=== PATIENT | male | born 1970 | race Caucasian/White ===

== ENCOUNTER 2018-11-15 17:37 | Inpatient (IN) | payer OTHER ==
[2018-11-15] MEDS ORDERED: SODIUM CHLORIDE 0.9% 1,000 ML IV ONE (18:37)
[2018-11-15] MEDS ORDERED: VANCOMYCIN IV PER PHARMACY 1 EACH MISC MISCELLANE PRN (18:37)
--- NOTE | 2018-11-15 18:37 | ED ---
Skin/Abscess/FB HPI - General Chief complaint: Skin/Abscess/Foreign Body Stated complaint: Toe pain Time Seen by Provider: 11/15/18 17:47 Source: patient, RN notes reviewed, old records reviewed Mode of arrival: ambulatory Limitations: no limitations - History of Present Illness Initial comments: This is a 48-year-old male the ER for evaluation patient resents today for evaluation regards to significant right great toe issue, right great toe infection with worsening symptoms worsening swelling worsening pain despite antibiotics. Patient is had outpatient imaging to try a roller coaster from osteomyelitis, so far very conclusive his first patient can relate. Patient denies fevers he is diabetic but does not take medications for his diabetes. B lood sugar he states usually runs within normal limits. Patient denies history of heart disease but does have high blood pressure and diabetes. MD complaint: other (Significant infection cellulitis and draining of right great toe) -: week(s) (4) Tetanus Up to Date: no Location: R foot Severity: severe Severity scale (1-10): 10 Quality: burning, aching Consistency: constant Improves with: none Worsens with: none Context: new medication, recent illness Associated symptoms: denies other symptoms Treatments Prior to Arrival: antibiotic - Related Data Home Medications Medication Instructions Recorded Confirmed Amoxic-Pot Clav 500-125 mg 1 tab PO TID 11/15/18 11/15/18 [Augmentin 500-125 mg] Levothyroxine Sodium [Synthroid] 100 mcg PO DAILY 11/15/18 11/15/18 Lisinopril-Hctz 10-12.5 mg 1 tab PO DAILY 11/15/18 11/15/18 [Zestoretic 10-12.5] Loratadine [Claritin] 10 mg PO DAILY PRN 11/15/18 11/15/18 Allergies Allergy/AdvReac Type Severity Reaction Status Date / Time No Known Allergies Allergy Verified 11/15/18 19:02 Review of Systems ROS Statement: Those systems with pertinent positive or pertinent negative responses have been documented in the HPI. ROS Other: All systems not noted in ROS Statement are negative. Past Medical History Past Medical History: Diabetes Mellitus, Hypertension, Thyroid Disorder History of Any Multi-Drug Resistant Organisms: None Reported Past Surgical History: Orthopedic Surgery Additional Past Surgical History / Comment(s): lt thumb Past Psychological History: No Psychological Hx Reported Smoking Status: Never smoker Past Alcohol Use History: Rare Past Drug Use History: Marijuana General Exam Limitations: no limitations General appearance: alert, in no apparent distress Head exam: Present: atraumatic, normocephalic, normal inspection Eye exam: Present: normal appearance, EOMI. Absent: scleral icterus, conjunctival injection, periorbital swelling ENT exam: Present: normal exam, mucous membranes moist Neck exam: Present: normal inspection. Absent: tenderness, meningismus, lymphadenopathy Respiratory exam: Present: normal lung sounds bilaterally. Absent: respiratory distress, wheezes, rales, rhonchi, stridor Cardiovascular Exam: Present: regular rate, normal rhythm, normal heart sounds. Absent: systolic murmur, diastolic murmur, rubs, gallop, clicks GI/Abdominal exam: Present: soft, normal bowel sounds. Absent: distended, tenderness, guarding, rebound, rigid Extremities exam: Present: normal inspection, full ROM, normal capillary refill, other (Right great toe does appear to have significant anal toe with surrounding infection and erythema pain with good line of demarcation proximally,. Drainage). Absent: tenderness, pedal edema, joint swelling, calf tenderness Back exam: Present: normal inspection Neurological exam: Present: alert, oriented X3, CN II-XII intact Psychiatric exam: Present: normal affect, normal mood Skin exam: Present: warm, dry, intact, normal color. Absent: rash Course Vital Signs 11/15/18 17:39 Temperature 98.2 F Pulse Rate 81 Respiratory 20 Rate Blood Pressure 150/94 O2 Sat by Pulse 98 Oximetry - Reevaluation(s) Reevaluation #1: 11/15/18 18:37 Medical records reviewed - Consultations Consultation #1: Spoke with Dr. Roberts is agreeable for admission Medical Decision Making - Medical Decision Making 48 male will be admitted for significant infection of right great toe likely ingrown toenail including this significant cellulitis with purulent drainage - Lab Data Result diagrams: 11/15/18 18:54 11/15/18 18:54 - EKG Data -: EKG Interpreted by Me (EKG shows sinus bradycardia rate of 58, MD 136, QRS 06, QTc 431) - Radiology Data Radiology results: report reviewed (X-ray right foot appears negative for acute disease), image reviewed Disposition Clinical Impression: Cellulitis of right toe, Ingrown toenail, Failure of outpatient treatment Disposition: ADMITTED IP TO THIS HOSP Condition: Fair Is patient prescribed a controlled substance at d/c from ED?: No
[2018-11-15] MEDS ORDERED: SODIUM CHLORIDE 0.9% 500 ML 500 ML IV STA (18:38)
[2018-11-15] MEDS ORDERED: VANCOMYCIN 2,250 MG in SODIUM CHLORIDE 0.9% 500 ML 500 ML IVPB STA (18:41)
[2018-11-15 19:13] LABS: Basophils % (A) 1 %; Eosinophils # (A) 0.2 k/uL (0-0.7); Eosinophils % (A) 3 %; HCT 44.4 % (39.0-53.0); Lymphocytes # (A) 1.6 k/uL (1.0-4.8); Lymphocytes % (A) 20 %; MCH 30.6 pg (25.0-35.0); MCHC 33.7 g/dL (31.0-37.0); MCV 90.8 fL (80.0-100.0); Mean Platelet Volume 8.4; Monocytes # (A) 0.4 k/uL (0-1.0); Monocytes % (A) 5 %; Neutrophils # (A) 5.6 k/uL (1.3-7.7); Neutrophils % (A) 69 %; Platelet Count 190 k/uL (150-450); RBC 4.89 m/uL (4.30-5.90); RDW 14.1 % (11.5-15.5)
[2018-11-15 19:18] LABS: ALT 18 U/L (21-72); AST 21 U/L (17-59); African American GFR (CKD) >90 (>60 ml/min/1.73 sqM); Albumin 4.3 g/dL (3.5-5.0); Alkaline Phosphatase 79 U/L (38-126); Anion Gap 10 mmol/L; Blood Urea Nitrogen 9 mg/dL (9-20); Calcium 9.8 mg/dL (8.4-10.2); Carbon Dioxide 30 mmol/L (22-30); Chloride 100 mmol/L (98-107); Glucose 122 mg/dL (74-99); Phosphorus 4.1 mg/dL (2.5-4.5); Potassium 3.9 mmol/L (3.5-5.1); Sodium 140 mmol/L (137-145); Total Bilirubin 0.4 mg/dL (0.2-1.3); Total Protein 7.7 g/dL (6.3-8.2)
[2018-11-15 19:23] LABS: INR 0.9 (<1.2); Partial Thromboplastin Time 25.2 sec (22.0-30.0)
--- NOTE | 2018-11-15 19:40 | XR ---
EXAMINATION TYPE: XR foot complete RT DATE OF EXAM: 11/15/2018 COMPARISON: NONE HISTORY: Toe infection TECHNIQUE: 3 views FINDINGS: There is soft tissue swelling at the end of the big toe. I see no fracture nor dislocation. I see no focal bone destruction. There is plantar calcaneal spurring. There is spurring at the first MP joint with joint space narrowing. IMPRESSION: Soft tissue swelling. No sign of osteomyelitis.
[2018-11-15] MEDS ORDERED: ALPRAZolam 0.25 MG TAB PO PRN (21:53)
[2018-11-15] MEDS ORDERED: TEMAZEPAM 15 MG CAP PO PRN (21:53)
--- NOTE | 2018-11-15 22:27 | HP ---
HISTORY AND PHYSICAL DATE OF SERVICE: 11/15/2018. CHIEF COMPLAINT: Right great toe infection and abscess. HISTORY OF PRESENT ILLNESS: This 48-year-old gentleman with a past medical history of multiple medical problems, including diabetes mellitus, hypertension, hypothyroidism, history of DJD, history of left trigger thumb as well as ingrowing toenail of the right big toe, being followed by Dr. Magdiel Osborne in the outpatient setting, was noted to have infection of the right big toe for the last 3 to 4 weeks. The patient was on antibiotic. The patient because of lack of improvement patient came to [facility] and was admitted for further evaluation and treatment. There is no history of any fever, rigor or chills. No history of headache, loss of consciousness, seizures. PAST MEDICAL HISTORY: 1. History of diabetes. 2. Hypertension. 3. Hypothyroidism. 4. History of DJD. 5. Trigger thumb. HOME MEDICATIONS: 1. Claritin 10 mg daily p.r.n. 2. Zestoretic 10/12.5 mg p.o. daily. 3. Synthroid 100 mcg p.o. daily. 4. Augmentin 500 mg p.o. t.i.d. ALLERGIES: NONE. FAMILY HISTORY: No history of any heart disease or strokes. SOCIAL HISTORY: No history of smoking. THC. REVIEW OF SYSTEMS: ENT: No diminished hearing. No diminished vision. CARDIOVASCULAR SYSTEM: No angina, palpitations. RESPIRATORY SYSTEM: As mentioned earlier. GI: No nausea, vomiting. : No dysuria or retention. NERVOUS SYSTEM: No numbness, weakness. ALLERGY/IMMUNOLOGY: No asthma, hayfever. MUSCULOSKELETAL: As mentioned earlier. HEMATOLOGY/ONCOLOGY: No history of anemia. ENDOCRINE: No history of diabetes, hypothyroidism. CONSTITUTIONAL: As mentioned earlier. DERMATOLOGY: Negative. RHEUMATOLOGY: Negative. PSYCHIATRY: As mentioned earlier. PHYSICAL EXAMINATION: Patient is alert, oriented x3. Pulse is 55, blood pressure 160/73, respiration 18, temperature 98.2, pulse ox 98% on room air. HEENT: Conjunctivae normal. NECK: No jugular venous distention. CARDIOVASCULAR SYSTEM: S1, S2 muffled. RESPIRATORY SYSTEM: Breath sounds diminished at the bases. No rhonchi. No crackles. ABDOMEN: Soft, non-tender. No mass palpable. LEGS: No edema. No swelling. NERVOUS SYSTEM: Higher functions as mentioned earlier. Moves all 4 limbs. No focal motor or sensory deficit. LYMPHATICS: No lymph node palpable in neck, axillae or groin. SKIN: No ulcer, rash, bleeding. JOINTS: No active deforming arthropathy. EXAMINATION OF THE RIGHT BIG TOE: Significant swelling and pain and possible abscess formation with some bleeding and tenderness also present. Pulses are felt normally. LABS: CBC within normal limits. Sodium 140, potassium 3.9. Glucose 122. ASSESSMENT: 1. Right big toe abscess and possible cellulitis related to diabetic ulcer with failure of outpatient treatment. 2. Diabetes mellitus, type 2. 3. Hypertension. 4. Hypothyroidism. 5. Degenerative joint disease. 6. History of ingrown toenail in the right big toe. 7. Obesity with body mass index of 40. 8. History of tetrahydrocannabinol. RECOMMENDATIONS AND DISCUSSION: In this 48-year-old gentleman who presented with multiple medical issues, we will monitor the patient closely, continue the current medication, continue with symptomatic treatment. Broad-spectrum IV antibiotics. Follow the cultures. I would also recommend a bone scan to rule out the possibility of osteomyelitis. Infectious disease and vascular surgery consultations. Prognosis guarded because of multiple complex medical issues. Further recommendations to follow. A copy of this dictation is being forwarded to Dr. Magdiel Osborne, who is the primary physician. LINK / ANDIN: [id number] / MTDPorsha
[2018-11-15] MEDS: PIPERACILLIN-TAZOBACTAM 3.375 GM in SODIUM CHLORIDE 0.9% 100 ML IVPB SCH (23:47)
[2018-11-16] MEDS ORDERED: IBUPROFEN 400 MG TAB PO PRN (00:57)
[2018-11-16] MEDS: VANCOMYCIN 2,000 MG in SODIUM CHLORIDE 0.9% 500 ML 500 ML IVPB SCH ×3 (04:46→22:00)
[2018-11-16] MEDS: PIPERACILLIN-TAZOBACTAM 3.375 GM in SODIUM CHLORIDE 0.9% 100 ML IVPB SCH ×2 (06:05→15:22)
[2018-11-16] MEDS: LEVOTHYROXINE 100 MCG TAB PO SCH (06:15)
[2018-11-16 08:01] LABS: Glucose,Whole Blood 96 mg/dL (75-99)
[2018-11-16] MEDS: INSULIN ASPART (NovoLOG) 100 UNIT/ML VIAL SQ SCH ×4 (08:14→22:01)
[2018-11-16] MEDS: LISINOPRIL-HCTZ 10-12.5 MG 1 EACH TAB PO SCH (08:51)
[2018-11-16] MEDS: HEPARIN SODIUM,PORCINE 5,000 UNIT/ML 1 ML VIAL SQ SCH ×2 (08:51→22:00)
[2018-11-16 09:43] LABS: Basophils % (A) 1 %; Eosinophils # (A) 0.3 k/uL (0-0.7); Eosinophils % (A) 6 %; HCT 42.2 % (39.0-53.0); HGB 13.7 gm/dL (13.0-17.5); Lymphocytes # (A) 1.6 k/uL (1.0-4.8); Lymphocytes % (A) 29 %; MCH 30.4 pg (25.0-35.0); MCHC 32.5 g/dL (31.0-37.0); MCV 93.6 fL (80.0-100.0); Mean Platelet Volume 8.3; Monocytes # (A) 0.4 k/uL (0-1.0); Monocytes % (A) 7 %; Neutrophils % (A) 55 %; Platelet Count 154 k/uL (150-450); RBC 4.51 m/uL (4.30-5.90); RDW 14.2 % (11.5-15.5); WBC 5.5 k/uL (3.8-10.6)
[2018-11-16 09:54] LABS: African American GFR (CKD) >90 (>60 ml/min/1.73 sqM); Anion Gap 7 mmol/L; Blood Urea Nitrogen 8 mg/dL (9-20); Carbon Dioxide 30 mmol/L (22-30); Chloride 103 mmol/L (98-107); Glucose 134 mg/dL (74-99); Potassium 4.1 mmol/L (3.5-5.1); Sodium 140 mmol/L (137-145)
--- NOTE | 2018-11-16 10:00 | P.CON ---
Consult Note - . Consult date: 11/16/18 Assessment/Plan:: This is a pleasant 48-year-old gentleman who is being seen by wound care for a open ulceration to the right great toe. Patient states that the ulceration has been going on for probably 3-4 weeks that he has been on antibiotics. The patient noticed a week prior to the antibiotic redness to that toe. Patient states that the area constantly has edema and had noticed some skin breakdown prior to the redness. Ulceration to right great toe proximal to nailbed extending to distal portion of toe. Erythema and edema and an odor noted to the site. Patient has significant past history for diabetes mellitus, hypertension, hyperthyroidism. He is followed in the outpatient setting by Dr. Osborne. Review of systems: Integumentary: Reports a wound to right great toe, denies changes in skin, denies rashes, denies pruritus Physical exam: Integument: See HPI Assessment/plan: 1. Diabetic foot ulcer with fatty layer exposure. Absorptive silver, saline moistened gauze, dry gauze, rolled gauze to secure. Change dressing Wednesday. Patient to be seen by Dr. Smith for further recommendations on management of ulceration related to possible surgical intervention. Offloading utilizes walker and offloading boot as needed. Consult PT to assist with offloading and utilization of walker. Elevate leg as tolerated. Consult diabetes education. Consult nutrition for ulceration. Discussed with patient eulalia scottmariam his wound care and an outpatient setting patient was agreeable. 2. Cellulitis rule out osteomyelitis. Bone scan ordered awaiting results. Wound cultures pending. Thank you for the consultation any questions please contact the wound care center. DNP note has been reviewed and discussed with Dr. Duran and the impression and plan of care has been directed as dictated.
[2018-11-16 11:31] LABS: Appearance,Urine Clear (Clear); Bilirubin,Urine Negative (Negative); Blood,Urine Negative (Negative); Color,Urine Yellow; Glucose,Urine (UA) Negative (Negative); Ketones,Urine Negative (Negative); Leukocyte Esterase,Urine Negative (Negative); Nitrite,Urine Negative (Negative); Protein,Urine Negative (Negative); Specific Gravity,Urine 1.014 (1.001-1.035); Urobilinogen,Urine <2.0 mg/dL (<2.0)
[2018-11-16 12:06] LABS: Glucose,Whole Blood 98 mg/dL (75-99)
--- NOTE | 2018-11-16 13:38 | NM ---
EXAMINATION TYPE: NM bone 3 phase DATE OF EXAM: 11/16/2018 COMPARISON: Plain film 11/15/2018 HISTORY: Myelitis great toe Triple phase bone scintigraphy was performed following the injection of 25.8 mCi Tc 99m MDP. Immedia te images and 5.5 hours post injection images acquired. FINDINGS: Abnormal radio pharmaceutical uptake is noted on blood flow, blood pool and delayed imaging involving the first digit of the right foot. Uptake within the midfoot and ankle bilaterally is symmetric. IMPRESSION: Compatible with osteomyelitis first digit right foot
[2018-11-16 15:48] VITALS: BMI 40.0
[2018-11-16 17:06] LABS: Glucose,Whole Blood 97 mg/dL (75-99)
--- NOTE | 2018-11-16 18:10 | PN ---
PROGRESS NOTE DATE OF SERVICE: 11/16/2018. This 48-year-old gentleman who was admitted with right great toe abscess also had a diabetic ulcer. No chest pain. No palpitations. The bone scan is showing possible osteomyelitis of the right first digit of the foot. Infectious disease and vascular consultations are in place. Surgical evaluation in place. No chest pain. No palpitation. On exam, alert and oriented x3. Pulse 55, blood pressure 112/71, respiration 18, temperature 97.6, pulse ox 98% on room air. HEENT: Conjunctivae normal. NECK: No jugular venous distention. CARDIOVASCULAR SYSTEM: S1, S2 muffled. RESPIRATORY SYSTEM: Breath sounds diminished at the bases. No rhonchi. No crackles. ABDOMEN: Soft, non-tender. LEGS: No edema. No swelling. NERVOUS SYSTEM: No focal deficit. Right foot big toe has significant cellulitis and surrounding cellulitis present. Labs noted. ASSESSMENT: 1. Right big toe abscess, possible cellulitis with a diabetic ulcer with failure of outpatient treatment. 2. Diabetes mellitus, type 2. 3. Hypertension. 4. Hypothyroidism. 5. Degenerative joint disease. 6. History of ingrown toenail on the right big toe. 7. Obesity with body mass index of 40. 8. History of tetrahydrocannabinol. RECOMMENDATIONS AND DISCUSSION: At this time I recommend to continue current medications, continue with the monitoring, symptomatic treatment. Monitor the patient closely. Continue IV antibiotics. Follow the cultures. Guarded prognosis because of multiple complex medical issues. Further recommendations to follow. MMODL / IJN: [id number] /
[2018-11-16 20:56] LABS: Glucose,Whole Blood 111 mg/dL (75-99)
--- NOTE | 2018-11-16 23:48 | P.CONS ---
History of Present Illness - Reason for Consult Consult date: 11/16/18 Right big toe infection Requesting physician: Stephani Roberts - Chief Complaint Right big toe nonhealing wound pain swelling redness times few weeks - History of Present Illness Patient is a 48-year-old male with a past medical history significant for diabetes mellitus presenting to the ER for a nonhealing wound on the plantar aspect of his right big toe patient is not exactly sure how it started however has been there for more than 3 weeks now and has been treated with more than 3 weeks course of oral Augmentin without any improvement patient had did have a d iffuse swelling redness of the right big toe which is almost was the site of his left big toe with evidence of ingrowing toenail patient has been complaining of pain to the big toe with more of a dull aching to sharp intensity about 7-8 out of 10 and no radiation the patient did have minimal drainage from it with some foul-smelling with the symptoms and the patient was evaluated by the physician o n presentation to the hospital patient has been afebrile but his white count has been normal x-rays of the right big toe currently with no evidence of any osteomyelitis, bone scan has been ordered which is currently in progress patient has been started on vancomycin and Zosyn infectious disease was consulted for further recommendation regarding antibiotic therapy Review of Systems CONSTITUTIONAL: Positive for weakness. Denies high-grade Fever EYES: No complaint. ENT:No complaint. RESPIRATORY: No complaint. CARDIOVASCULAR: No complaint. GENITOURINARY: No complaint. GASTROINTESTINAL: No complaint. MUSCULOSKELETAL: As per history of present illness INTEGUMENTARY: As per history of present illness PSYCHOLOGICAL: No complaint. ENDOCRINE: No complaint. NEUROLOGIC: No complaint. Past Medical History Past Medical History: Diabetes Mellitus, Hypertension, Thyroid Disorder History of Any Multi-Drug Resistant Organisms: None Reported Past Surgical History: Orthopedic Surgery Additional Past Surgical History / Comment(s): lt thumb trigger thumb Past Anesthesia/Blood Transfusion Reactions: No Reported Reaction Additional Past Anesthesia/Blood Transfusion Reaction / Comm: Uncle on mother's side had a reaction to anesthesia during ortho surgery and prior to surgery, had heart problems Past Psychological History: No Psychological Hx Reported Smoking Status: Never smoker Past Alcohol Use History: Rare Past Drug Use History: Marijuana Medications and Allergies Home Medications Medication Instructions Recorded Confirmed Type Amoxic-Pot Clav 500-125 mg 1 tab PO TID 11/15/18 11/15/18 History [Augmentin 500-125 mg] Levothyroxine Sodium [Synthroid] 100 mcg PO DAILY 11/15/18 11/15/18 History Lisinopril-Hctz 10-12.5 mg 1 tab PO DAILY 11/15/18 11/15/18 History [Zestoretic 10-12.5] Loratadine [Claritin] 10 mg PO DAILY PRN 11/15/18 11/15/18 History Allergies Allergy/AdvReac Type Severity Reaction Status Date / Time No Known Allergies Allergy Verified 11/15/18 19:02 Physical Exam Vitals: Vital Signs Temp Pulse Pulse Resp BP BP Pulse Ox 11/16/18 08:50 97.6 F 55 L 18 112/71 98 11/16/18 04:45 98 F 52 L 20 99/58 96 11/16/18 00:00 20 11/15/18 20:25 97.9 F 62 20 149/85 100 11/15/18 19:56 55 L 18 165/73 98 11/15/18 17:39 98.2 F 81 20 150/94 98 Intake and Output 11/15/18 11/16/18 11/16/18 22:59 06:59 14:59 Intake Total 200 100 Balance 200 100 Intake: Oral 200 100 Other: Voiding Method Toilet # Voids 1 1 # Bowel Movements 0 Weight 130.181 kg GENERAL DESCRIPTION: Middle-aged male lying in bed, no distress. No tachypnea or accessory muscle of respiration use. HEENT: Shows Pallor , no scleral icterus. Oral mucous membrane is dry. No pharyngeal erythema or thrush NECK: Trachea central, no thyromegaly. LUNGS: Unlabored breathing. Clear to auscultation anteriorly. No wheeze or crackle. HEART: S1, S2, regular rate and rhythm. No loud murmur ABDOMEN: Soft, no tenderness , guarding or rigidity, no organomegaly EXTREMITIES: Right big toe did have a plantar wound with no significant slough tissue right big toe was swollen and red with evidence of ingrowing toenail with some dry blood around the edges of the nail minimal foul-smelling SKIN: No rash, no masses palpable. NEUROLOGICAL: The patient is awake, alert, oriented x3, mood and affect normal. Results CBC & Chem 7: 11/16/18 09:00 11/16/18 09:00 Labs: Abnormal Lab Results - Last 24 Hours (Table) 11/15/18 11/16/18 Range/Units 18:54 09:00 BUN 8 L (9-20) mg/dL Creatinine 0.65 L 0.65 L (0.66-1.25) mg/dL Glucose 122 H 134 H (74-99) mg/dL ALT 18 L (21-72) U/L Microbiology - Last 24 Hours (Table) 11/16/18 05:00 Wound Culture - Preliminary Toe - Right First Assessment and Plan Assessment: 1-patient with right diabetic foot infection in this patient currently to have a nonhealing wound on the plantar aspect of the right big toe with secondary cellulitis that has failed outpatient oral Augmentin therapy with concern for underlying osteomyelitis will need to cover for both gram-positive as well as gram-negative bacteria in this patient who did have underlying diabetes mellitus Plan: 1-Vancomycin pharmacy to dose target trough of 15 while watching his kidney function and Vanco trough closely 2-discontinue Zosyn and add cefepime 2 g daily to cover for gram negatives 3-await vascular surgery evaluation for either debridement of the wound and deep culture or partial amputation of the right big toe 4-local wound care with Aquacel silver dressing We will follow on clinical condition and cultures to further adjust medication if needed Thank you for this consultation will follow this patient with you Time with Patient: Greater than 30
[2018-11-17] MEDS: PIPERACILLIN-TAZOBACTAM 3.375 GM in SODIUM CHLORIDE 0.9% 100 ML IVPB SCH (00:10)
[2018-11-17] MEDS: VANCOMYCIN 2,000 MG in SODIUM CHLORIDE 0.9% 500 ML 500 ML IVPB SCH ×2 (05:01→17:20)
[2018-11-17] MEDS: LEVOTHYROXINE 100 MCG TAB PO SCH (06:09)
[2018-11-17 07:19] LABS: Glucose,Whole Blood 96 mg/dL (75-99)
[2018-11-17] MEDS: INSULIN ASPART (NovoLOG) 100 UNIT/ML VIAL SQ SCH ×4 (07:26→20:47)
[2018-11-17] MEDS: CEFEPIME 2 GM in SODIUM CHLORIDE 0.9% 100 ML IVPB SCH ×2 (08:17→20:57)
[2018-11-17] MEDS: HEPARIN SODIUM,PORCINE 5,000 UNIT/ML 1 ML VIAL SQ SCH ×2 (08:17→20:57)
[2018-11-17] MEDS: LISINOPRIL-HCTZ 10-12.5 MG 1 EACH TAB PO SCH (08:17)
[2018-11-17 09:00] LABS: Basophils % (A) 1 %; Eosinophils # (A) 0.4 k/uL (0-0.7); Eosinophils % (A) 6 %; HCT 41.4 % (39.0-53.0); HGB 12.8 gm/dL (13.0-17.5); Lymphocytes # (A) 1.5 k/uL (1.0-4.8); Lymphocytes % (A) 24 %; MCH 29.2 pg (25.0-35.0); MCV 94.1 fL (80.0-100.0); Monocytes # (A) 0.3 k/uL (0-1.0); Monocytes % (A) 5 %; Neutrophils % (A) 63 %; Platelet Count 145 k/uL (150-450); RDW 14.3 % (11.5-15.5); WBC 6.3 k/uL (3.8-10.6)
[2018-11-17 09:16] LABS: African American GFR (CKD) >90 (>60 ml/min/1.73 sqM); Anion Gap 6 mmol/L; Blood Urea Nitrogen 8 mg/dL (9-20); C Reactive Protein 6.7 mg/L (<10.0); Calcium 8.8 mg/dL (8.4-10.2); Carbon Dioxide 29 mmol/L (22-30); Chloride 104 mmol/L (98-107); Glucose 117 mg/dL (74-99); Potassium 3.6 mmol/L (3.5-5.1); Sodium 139 mmol/L (137-145)
[2018-11-17] MEDS ORDERED: VANCOMYCIN TROUGH DUE 1 EACH MISC MISCELLANE ONE (11:00)
[2018-11-17 11:57] LABS: Glucose,Whole Blood 104 mg/dL (75-99)
[2018-11-17 12:15] LABS: Erythrocyte Sedimentation Rate 26 mm/hr (0-15)
[2018-11-17 17:05] LABS: Glucose,Whole Blood 108 mg/dL (75-99)
--- NOTE | 2018-11-17 18:08 | PN ---
PROGRESS NOTE DATE OF SERVICE: 11/17/2018 This 48-year-old gentleman who was admitted with right big toe abscess had possible cellulitis. The patient is being closely monitored. Patient also had features of osteomyelitis in the bone scan. Patient is on broad-spectrum IV antibiotics since then. Patient is apparently resides in a homeless place in [facility]. The cultures are showing presumptive Staph aureus and gram-negative bacilli. No chest pain. No palpitations. No fever. EXAM: Alert and oriented times three. Pulse 50. Blood pressure 115/64, respiration 14, temperature 98.2, pulse ox 97% on room air. HEENT is conjunctivae normal. NECK: No JVD. CARDIOVASCULAR: S1, S2 muffled. RESPIRATION: Breath sounds diminished in the bases. No rhonchi. No crackles. ABDOMEN is soft, nontender. LEGS: Right foot cellulitis. NERVOUS SYSTEM: No focal deficits. LABORATORY DATA: WBC 6.2, hemoglobin 12.8, and vancomycin noted. ASSESSMENT: 1. Right big toe abscess with cellulitis with diabetic ulcer with failure of outpatient treatment secondary to diabetes type 2. 2. Presumed presumptive Staph aureus and gram-negative bacilli from the cultures. 3. Diabetes mellitus type 2. 4. Gait dysfunction. 5. Hypertension. 6. Hypothyroidism. 7. History of degenerative joint disease. 8. History of ingrown toenail on the right big toe previously. 9. Obesity with body mass index of 40. 10.History of THC. RECOMMENDATIONS AND DISCUSSION: Recommend to continue current medications. Continue symptomatic treatment. Otherwise, we will await final culture report and adjust antibiotics accordingly. Otherwise, as mentioned earlier, patient is currently homeless. chip loft worker/child welfare caseworker to address the issues regarding outpatient followup and compliance. We will continue to monitor. Closely follow with Infectious Disease. Further recommendations to follow. MMODL / IJN: [id number] /
[2018-11-17 20:19] LABS: Glucose,Whole Blood 119 mg/dL (75-99)
--- NOTE | 2018-11-17 20:50 | CONS ---
DATE OF CONSULTATION 11/17/2018 This is a 48-year-old gentleman who came to [facility] with history of infected wound right foot big toe for the last 3 weeks. He has been treated by his family physician and had a nail trimmed and he developed a wound on the right foot big toe involving the nail bed with foul odor smell and marked tenderness of the big toe. The patient is on IV antibiotics. MEDICAL HISTORY: No history of diabetes. History of hypertension, controlled with medication. EXAMINATION: Neck is supple. Trachea central. CHEST: Clear. ABDOMEN: Soft. Femoral pulses are present. Dorsal pedis palpable. Right foot big toe is grossly infected with foul odor smell. Nail bed is infected and there is open wound on the plantar aspect of the right big toe with marked redness. PLAN: IV antibiotic. Patient will need a right big toe amputation. Risks and complications of bleeding, infection, thrombosis has been discussed. MMODL / IJN: [id number] / MTDPorsha
--- NOTE | 2018-11-17 23:32 | PN ---
PROGRESS NOTE DATE OF SERVICE: 11/17/2018 REASON FOR FOLLOWUP: Right big toe diabetic foot infection with underlying acute osteomyelitis. INTERVAL HISTORY: The patient is currently afebrile. The patient has been breathing comfortably. Denies having any chest pain or cough. No nausea or vomiting. No abdominal pain or any worsening pain to the right big toe area. PHYSICAL EXAMINATION: Blood pressure is 121/72 with a pulse of 61, temperature of 98.9. He is 97% on room air. General description is a middle-aged male lying in bed in no distress. RESPIRATORY SYSTEM: Unlabored breathing. Clear to auscultation anteriorly. HEART: S1, S2. Regular rate and rhythm. ABDOMEN: Soft. No tenderness. Right big toe is currently dressed up. No obvious drainage on the dressing. LABS: Hemoglobin 12.8, white count 6.3, BUN of 8, creatinine 0.61. Wound culture with Staph aureus and gram-negative bacilli. Blood culture so far negative. DIAGNOSTIC IMPRESSION AND PLAN: Patient with right big toe diabetic foot infection with underlying acute osteomyelitis. Vascular Surgery has seen the patient and is recommending amputation. Patient to continue with vancomycin and cefepime while waiting for his condition to stabilize. Continue supportive care. MMODL / IJN: [id number] /
[2018-11-18] MEDS ORDERED: VANCOMYCIN TROUGH DUE 1 EACH MISC MISCELLANE ONE (03:00)
[2018-11-18 03:44] LABS: Basophils % (A) 1 %; Eosinophils # (A) 0.4 k/uL (0-0.7); Eosinophils % (A) 5 %; HCT 37.1 % (39.0-53.0); HGB 12.4 gm/dL (13.0-17.5); Lymphocytes # (A) 1.7 k/uL (1.0-4.8); Lymphocytes % (A) 21 %; MCH 30.4 pg (25.0-35.0); MCHC 33.3 g/dL (31.0-37.0); MCV 91.3 fL (80.0-100.0); Mean Platelet Volume 8.4; Monocytes # (A) 0.5 k/uL (0-1.0); Monocytes % (A) 6 %; Neutrophils # (A) 5.2 k/uL (1.3-7.7); Neutrophils % (A) 65 %; Platelet Count 147 k/uL (150-450); RBC 4.06 m/uL (4.30-5.90)
[2018-11-18 03:56] LABS: African American GFR (CKD) >90 (>60 ml/min/1.73 sqM); Anion Gap 7 mmol/L; Blood Urea Nitrogen 9 mg/dL (9-20); Calcium 8.9 mg/dL (8.4-10.2); Carbon Dioxide 27 mmol/L (22-30); Chloride 105 mmol/L (98-107); Glucose 103 mg/dL (74-99); Potassium 3.4 mmol/L (3.5-5.1); Sodium 139 mmol/L (137-145)
[2018-11-18] MEDS: VANCOMYCIN 2,000 MG in SODIUM CHLORIDE 0.9% 500 ML 500 ML IVPB SCH (04:13)
[2018-11-18] MEDS: LEVOTHYROXINE 100 MCG TAB PO SCH (04:14)
[2018-11-18 06:42] LABS: Glucose,Whole Blood 84 mg/dL (75-99)
[2018-11-18] MEDS: INSULIN ASPART (NovoLOG) 100 UNIT/ML VIAL SQ SCH ×4 (07:47→21:31)
[2018-11-18] MEDS: HEPARIN SODIUM,PORCINE 5,000 UNIT/ML 1 ML VIAL SQ SCH ×2 (07:56→21:32)
[2018-11-18] MEDS: CEFEPIME 2 GM in SODIUM CHLORIDE 0.9% 100 ML IVPB SCH ×2 (08:00→23:40)
[2018-11-18] MEDS: LISINOPRIL-HCTZ 10-12.5 MG 1 EACH TAB PO SCH (08:00)
[2018-11-18 11:43] LABS: Glucose,Whole Blood 103 mg/dL (75-99)
[2018-11-18] MEDS ORDERED: Potassium Replacement Protocol 1 EACH MISC MISCELLANE PRN (11:48)
[2018-11-18] MEDS: POTASSIUM CHLORIDE ER 20 MEQ TAB.ER PO SCH (12:27)
[2018-11-18] MEDS ORDERED: IV FLUID CONTINUATION 1,000 ML IV ONE (13:27)
[2018-11-18] MEDS ORDERED: fentaNYL (PF) 50 MCG/ML 2 ML AMP ONE (13:54)
[2018-11-18] MEDS ORDERED: PROPOFOL 10 MG/ML 20 ML VIAL IV ONE (13:54)
[2018-11-18] MEDS ORDERED: KETAMINE 10 MG/ML 20 ML VIAL ONE (13:54)
[2018-11-18] MEDS ORDERED: MIDAZOLAM 2 MG/2 ML VIAL ONE (13:54)
[2018-11-18] MEDS ORDERED: LIDOCAINE 1% INJ 10MG/ML (20 ML MDV) SQ ONE ×4 (13:54→13:57)
[2018-11-18 15:20] LABS: Glucose,Whole Blood 102 mg/dL (75-99)
[2018-11-18] MEDS ORDERED: HYDROmorphone 1 MG/ML 1 ML SYRINGE IVP ONE ×2 (15:24→15:31)
[2018-11-18] MEDS ORDERED: VANCOMYCIN 2,250 MG in SODIUM CHLORIDE 0.9% 500 ML 500 ML IVPB SCH (16:00)
[2018-11-18] MEDS: HYDROmorphone 0.5 MG/0.5 ML SYRINGE IVP PRN (16:28)
[2018-11-18 17:18] LABS: Glucose,Whole Blood 83 mg/dL (75-99)
[2018-11-18 20:31] LABS: Glucose,Whole Blood 86 mg/dL (75-99)
--- NOTE | 2018-11-18 20:38 | OP ---
OPERATIVE REPORT PREOPERATIVE DIAGNOSIS: Wet gangrene of the right foot big toe. OPERATION: Amputation of the right foot big toe at the metatarsophalangeal joint. This patient has history of infection and wet gangrene for the last few weeks. The patient is on IV antibiotic. PROCEDURE DESCRIPTION: The patient was brought to the operating room. Right foot was prepped and draped in the usual sterile manner. IV sedation and local anesthesia with ring block. Incision was made on the dorsal aspect of the big toe, deepened through the tissue and down to the bone. Then posterior flap incision was made deep into skin, fat and fascia. The tendons were divided until we reached the proximal metatarsophalangeal joint. Using bone cutter, we divided the proximal metatarsal bone. We divided the proximal phalanx at the metatarsophalangeal joint and there were some bleeding points. Bleeding vessels were noted digital which was tied with 5-0 Prolene. The wound was copiously irrigated with hydrogen peroxide. Subcutaneous tissue was closed with 3-0 Vicryl and skin was approximated with 4-0 mattress suture. Specimen was sent to Pathology and dressing applied. Patient tolerated the procedure well. MMODL / IJN: [id number] /
--- NOTE | 2018-11-18 23:48 | PN ---
PROGRESS NOTE DATE OF SERVICE: 11/18/2018. REASON FOR FOLLOWUP: Right diabetic foot infection with osteomyelitis. INTERVAL HISTORY: The patient is currently afebrile. Patient has been breathing comfortably. Denies worsening pain to the right big toe area. The patient is status post amputation of the right big toe. The patient tolerating the procedure. No chest pain. No nausea, vomiting, abdominal pain, no diarrhea. PHYSICAL EXAMINATION: Blood pressure is 125/76, pulse of 73, temperature 98.1. He is 99% on room air. General description is a middle aged male lying in bed in no distress. Respiratory system: Unlabored breathing. Clear to auscultation anteriorly. Heart S1, S2. Regular rate and rhythm. Abdomen soft, no tenderness. Right big toe now dressed up. No obvious drainage on the dressing. LABS: Wound culture with MSSA and Providencia. DIAGNOSTIC IMPRESSION AND PLAN: Patient with right big toe osteomyelitis. Culture positive for MSSA and Providencia, to continue Cefepime to cover for both pathogens. Vancomycin was discontinued. Continue supportive care. MMODL / IJN: [id number] /
[2018-11-19] MEDS: LEVOTHYROXINE 100 MCG TAB PO SCH (06:19)
[2018-11-19 07:10] LABS: Glucose,Whole Blood 96 mg/dL (75-99)
[2018-11-19] MEDS: INSULIN ASPART (NovoLOG) 100 UNIT/ML VIAL SQ SCH ×4 (07:37→21:21)
[2018-11-19] MEDS: HYDROcodone/APAP 5-325MG 1 EACH TAB PO PRN ×3 (07:49→21:25)
[2018-11-19] MEDS: CEFEPIME 2 GM in SODIUM CHLORIDE 0.9% 100 ML IVPB SCH ×2 (07:49→21:20)
[2018-11-19] MEDS: LISINOPRIL-HCTZ 10-12.5 MG 1 EACH TAB PO SCH (07:49)
[2018-11-19] MEDS: HEPARIN SODIUM,PORCINE 5,000 UNIT/ML 1 ML VIAL SQ SCH ×2 (07:49→21:21)
[2018-11-19 07:55] LABS: African American GFR (CKD) >90 (>60 ml/min/1.73 sqM); Anion Gap 11 mmol/L; Blood Urea Nitrogen 6 mg/dL (9-20); Calcium 9.1 mg/dL (8.4-10.2); Carbon Dioxide 25 mmol/L (22-30); Chloride 104 mmol/L (98-107); Glucose 107 mg/dL (74-99); Sodium 140 mmol/L (137-145)
[2018-11-19] MEDS: HYDROmorphone 0.5 MG/0.5 ML SYRINGE IVP PRN ×2 (10:09→18:02)
[2018-11-19 11:27] LABS: Glucose,Whole Blood 199 mg/dL (75-99)
--- NOTE | 2018-11-19 11:27 | PN ---
PROGRESS NOTE This is a 48 -year-old gentleman with infected gangrene of the right foot big toe. The patient had amputation of the right foot big toe. Today I have changed the dressing. Incision site is clean. No discharge noted. We changed the dressing. We will continue with IV antibiotic. We will change the dressing on Wednesday. MMODL / IJN: [id number] /
[2018-11-19 17:12] LABS: Glucose,Whole Blood 113 mg/dL (75-99)
--- NOTE | 2018-11-19 18:05 | P.PN ---
Subjective Progress Note Date: 11/18/18 Principal diagnosis: Right great toe abscess and cellulitis Patient is a 48-year-old male was admitted to hospital with right be toe abscess and possible cellulitis. Currently on broad-spectrum antibiotics. Patient is homeless and assess at [facility]. 11/18/2018 Patient denied any complaints of chest pain or shortness of breath. No nausea vomiting or abdominal pain. Right toe pain is better. Patient is being taken to or for right toe amputation as per vascular surgery. ID is on board. Follow-up culture final culture reports. Patient has been afebrile. No nausea vomiting or abdominal pain. Current medications reviewed. Objective - Vital Signs Vital signs: Vital Signs Temp 98.4 F 11/18/18 16:00 Pulse 55 L 11/18/18 17:00 Resp 18 11/18/18 16:00 BP 126/64 11/18/18 17:00 Pulse Ox 96 11/18/18 16:00 Intake & Output 11/18/18 11/18/18 11/19/18 06:59 18:59 06:59 Intake Total 1340 Output Total 100 Balance 1240 Intake: IV 800 Oral 540 Output: Estimated Blood Loss 100 Other: Voiding Method Toilet # Voids 1 1,200 - Exam PHYSICAL EXAMINATION: Patient is lying in the bed comfortably, no acute distress, awake alert and oriented.. HEENT: Normocephalic. Neck is supple. Pupils reactive. Nostrils clear. Oral cavity is moist. Ears reveal no drainage. Neck reveals no JVD, carotid bruits, or thyromegaly. CHEST EXAMINATION: Trachea is central. Symmetrical expansion. Lung collier clear to auscultation and percussion. CARDIAC: Normal S1, S2 with no gallops. No murmurs ABDOMEN: Soft. Bowel sounds normal. No organomegaly. No abdominal bruits. Extremities: reveal no edema. No clubbing or cyanosis. Right toe cellulitis and abscess. Neurologically awake, alert, oriented x3 with well-coordinated movements. No focal deficits noted Skin: No rash or skin lesions. Psychiatric: Coperative. Nonsuicidal Musculoskeletal: No joint swelling or deformity. Normal range of motion. - Labs CBC & Chem 7: 11/18/18 03:33 11/19/18 07:21 Labs: Abnormal Lab Results - Last 24 Hours (Table) 11/17/18 11/18/18 11/18/18 Range/Units 20:09 03:33 03:33 RBC 4.06 L (4.30-5.90) m/uL Hgb 12.4 L (13.0-17.5) gm/dL Hct 37.1 L (39.0-53.0) % Plt Count 147 L (150-450) k/uL Potassium 3.4 L (3.5-5.1) mmol/L Creatinine 0.51 L (0.66-1.25) mg/dL Glucose 103 H (74-99) mg/dL POC Glucose (mg/dL) 119 H (75-99) mg/dL 11/18/18 11/18/18 Range/Units 11:41 15:17 RBC (4.30-5.90) m/uL Hgb (13.0-17.5) gm/dL Hct (39.0-53.0) % Plt Count (150-450) k/uL Potassium (3.5-5.1) mmol/L Creatinine (0.66-1.25) mg/dL Glucose (74-99) mg/dL POC Glucose (mg/dL) 103 H 102 H (75-99) mg/dL Microbiology - Last 24 Hours (Table) 11/16/18 05:00 Gram Stain - Final Toe - Right First Wound Culture - Final Staphylococcus aureus Providencia rettgeri 11/15/18 18:54 Blood Culture - Preliminary Blood No Growth after 48 hours Assessment and Plan Assessment: Right great toe abscess with cellulitis with a diabetic ulcer. Failure of outpatient therapy Diabetes type 2. Diet controlled Gait dysfunction Hypertension Hypothyroidism Degenerative joint disease History of ingrown toenail on the right big toe previously Morbid obesity BMI 40.0 Plan: Patient be continued on broad-spectrum antibiotics. Surgery is planning for OR for right rate toe amputation. Continue the antibiotics in the form of cefepime and vancomycin. Wound cultures are growing presumptive staph and Providentia. Further recommendations based on the clinical course. Time with Patient: Greater than 30
[2018-11-19 20:48] LABS: Glucose,Whole Blood 108 mg/dL (75-99)
--- NOTE | 2018-11-19 22:30 | PN ---
PROGRESS NOTE DATE OF SERVICE: 11/19/2018. REASON FOR FOLLOWUP: Right big toe osteomyelitis. INTERVAL HISTORY: The patient is currently afebrile. Patient has been breathing comfortably. Denies having any chest pain or any cough. No nausea, vomiting. No abdominal pain or any pain to the right big toe area. EXAMINATION: On admission, blood pressure 144/82 with a pulse of 79, temperature 98.3. He is 99% on room air. General description is a middle-aged male lying in bed in no distress. Respiratory system: Unlabored breathing. Clear to auscultation anteriorly. Heart S1, S2. Regular rate and rhythm. Abdomen soft. No tenderness. LABS: Creatinine 0.51. DIAGNOSTIC IMPRESSION AND PLAN: Patient with right big toe osteomyelitis. Culture positive for MSSA and Providencia. The patient is currently covered with cefepime. The patient did have amputation right big toe, infected part was removed and the patient of antibiotic therapy. Continue supportive care. MMODL / IJN: [id number] /
[2018-11-20] MEDS: HYDROmorphone 0.5 MG/0.5 ML SYRINGE IVP PRN ×3 (05:42→19:09)
[2018-11-20] MEDS: LEVOTHYROXINE 100 MCG TAB PO SCH (05:42)
[2018-11-20 07:12] LABS: Glucose,Whole Blood 107 mg/dL (75-99)
[2018-11-20] MEDS: INSULIN ASPART (NovoLOG) 100 UNIT/ML VIAL SQ SCH ×4 (08:30→21:29)
[2018-11-20] MEDS: LISINOPRIL-HCTZ 10-12.5 MG 1 EACH TAB PO SCH (08:31)
[2018-11-20] MEDS: CEFEPIME 2 GM in SODIUM CHLORIDE 0.9% 100 ML IVPB SCH ×2 (08:31→21:26)
[2018-11-20] MEDS: HEPARIN SODIUM,PORCINE 5,000 UNIT/ML 1 ML VIAL SQ SCH ×2 (08:31→21:29)
[2018-11-20] MEDS: LORATADINE 10 MG TAB PO PRN (08:37)
[2018-11-20 12:16] LABS: Glucose,Whole Blood 108 mg/dL (75-99)
--- NOTE | 2018-11-20 16:49 | PN ---
PROGRESS NOTE DATE OF SERVICE: 11/20/2018. REASON FOR FOLLOWUP: Right big toe acute osteomyelitis with associated insulin-dependent diabetes mellitus and underlying pathogens, MSSA and Providencia. INTERVAL HISTORY: The patient is currently afebrile. Patient has been breathing comfortably. Denies having any chest pain, no shortness of breath or cough. No nausea, no vomiting. No abdominal pain or any worsening pain to the right big toe area. PHYSICAL EXAMINATION: Blood pressure 128/71, with pulse of 55, temperature 98.1. He is 97% on room air. General description is a middle-aged male lying in bed in no distress. Respiratory system: Unlabored breathing. Clear to auscultation anteriorly. Heart S1, S2. Regular rate and rhythm. Abdomen soft. No tenderness. Right big toe is currently dressed up. No obvious drainage on the dressing. LABS: No new labs have been obtained today. DIAGNOSTIC IMPRESSION AND PLAN: Patient with right big toe acute osteomyelitis with underlying diabetes mellitus secondary to MSSA and Providencia status post amputation right big toe. As the infected part has been removed, the patient has no need to be on skilled nursing antibiotic therapy, continue Silvadene while inpatient, transition to oral antibiotic on discharge. Continue supportive care. MMODL / IJN: [id number] /
[2018-11-20 17:18] LABS: Glucose,Whole Blood 116 mg/dL (75-99)
[2018-11-20 20:29] LABS: Glucose,Whole Blood 116 mg/dL (75-99)
[2018-11-21] MEDS: HYDROcodone/APAP 5-325MG 1 EACH TAB PO PRN ×4 (00:40→20:17)
--- NOTE | 2018-11-21 01:21 | P.PN ---
Subjective Progress Note Date: 11/19/18 Principal diagnosis: Right great toe abscess and cellulitis Patient is a 48-year-old male was admitted to hospital with right be toe abscess and possible cellulitis. Currently on broad-spectrum antibiotics. Patient is homeless and assess at [facility]. 11/18/2018 Patient denied any complaints of chest pain or shortness of breath. No nausea vomiting or abdominal pain. Right toe pain is better. Patient is being taken to or for right toe amputation as per vascular surgery. ID is on board. Follow-up culture final culture reports. Patient has been afebrile. No nausea vomiting or abdominal pain. 11/19/2018 patient is currently lying in the bed comfortably. Right foot pain is controlled with medications. Dressing change was done by surgery. Patient is being continued on IV antibiotics and ID is on board. Current medications reviewed. Objective - Vital Signs Vital signs: Vital Signs Temp 98.4 F 11/19/18 12:35 Pulse 75 11/19/18 12:35 Resp 16 11/19/18 12:35 BP 145/74 11/19/18 12:35 Pulse Ox 97 11/19/18 12:35 Intake & Output 11/18/18 11/19/18 11/19/18 18:59 06:59 18:59 Intake Total 1340 Output Total 234 201 5688 Balance 1240 -800 -3800 Intake: IV 800 Oral 540 Output: Urine 800 3800 Estimated Blood Loss 100 Other: # Voids 1,200 2 # Bowel Movements 0 - Exam PHYSICAL EXAMINATION: Patient is lying in the bed comfortably, no acute distress, awake alert and oriented.. HEENT: Normocephalic. Neck is supple. Pupils reactive. Nostrils clear. Oral cavity is moist. Ears reveal no drainage. Neck reveals no JVD, carotid bruits, or thyromegaly. CHEST EXAMINATION: Trachea is central. Symmetrical expansion. Lung collier clear to auscultation and percussion. CARDIAC: Normal S1, S2 with no gallops. No murmurs ABDOMEN: Soft. Bowel sounds normal. No organomegaly. No abdominal bruits. Extremities: reveal no edema. No clubbing or cyanosis. Right toe amputation surgical site is bandaged.. Neurologically awake, alert, oriented x3 with well-coordinated movements. No focal deficits noted Skin: No rash or skin lesions. Psychiatric: Coperative. Nonsuicidal Musculoskeletal: No joint swelling or deformity. Normal range of motion. - Labs CBC & Chem 7: 11/18/18 03:33 11/19/18 07:21 Labs: Abnormal Lab Results - Last 24 Hours (Table) 11/19/18 11/19/18 11/19/18 Range/Units 07:21 11:25 17:09 BUN 6 L (9-20) mg/dL Creatinine 0.51 L (0.66-1.25) mg/dL Glucose 107 H (74-99) mg/dL POC Glucose (mg/dL) 199 H 113 H (75-99) mg/dL Microbiology - Last 24 Hours (Table) 11/15/18 18:54 Blood Culture - Preliminary Blood No Growth after 72 hours Assessment and Plan Assessment: Right great toe abscess with cellulitis with a diabetic ulcer. Failure of outpatient therapy. Status post amputation. Diabetes type 2. Diet controlled Gait dysfunction Hypertension Hypothyroidism Degenerative joint disease History of ingrown toenail on the right big toe previously Morbid obesity BMI 40.0 Plan: Patient be continued on broad-spectrum antibiotics. Status post right great toe amputation. Continue the antibiotics in the form of cefepime and vancomycin. Wound cultures are growing presumptive staph and Providentia. ID is on board. Further recommendations based on the clinical course. Time with Patient: Greater than 30
--- NOTE | 2018-11-21 01:22 | P.PN ---
Subjective Progress Note Date: 11/20/18 Principal diagnosis: Right great toe abscess and cellulitis Patient is a 48-year-old male was admitted to hospital with right be toe abscess and possible cellulitis. Currently on broad-spectrum antibiotics. Patient is homeless and assess at [facility]. 11/18/2018 Patient denied any complaints of chest pain or shortness of breath. No nausea vomiting or abdominal pain. Right toe pain is better. Patient is being taken to or for right toe amputation as per vascular surgery. ID is on board. Follow-up culture final culture reports. Patient has been afebrile. No nausea vomiting or abdominal pain. 11/19/2018 patient is currently lying in the bed comfortably. Right foot pain is controlled with medications. Dressing change was done by surgery. Patient is being continued on IV antibiotics and ID is on board. 11/20/2018 Patient denied any complaints of fever or chills. Overnight patient had increased right toe pain and was given IV Dilaudid which seemed to improve his pain. No complaints of chest pain or shortness of breath. Currently on IV antibiotics in the form of cefepime and vancomycin. ID is following. Possible discharge in next 24 hours with ID final recommendations. Current medications reviewed. Objective - Vital Signs Vital signs: Vital Signs Temp 98.1 F 11/20/18 12:43 Pulse 55 L 11/20/18 12:43 Resp 16 11/20/18 12:43 BP 128/71 11/20/18 12:43 Pulse Ox 97 11/20/18 12:43 Intake & Output 11/20/18 11/20/18 11/21/18 06:59 18:59 06:59 Intake Total 100 Output Total 2100 1000 800 Balance -2099900 800 Intake: Intake, IV Titration 100 Amount Cefepime 2 gm In Sodium 100 Chloride 0.9% 100 ml @ 200 mls/hr IVPB Q12HR [facility] Rx#:[id number] Output: Urine 2100 1000 800 Other: Voiding Method Toilet # Voids 2 - Exam PHYSICAL EXAMINATION: Patient is lying in the bed comfortably, no acute distress, awake alert and oriented.. HEENT: Normocephalic. Neck is supple. Pupils reactive. Nostrils clear. Oral cavity is moist. Ears reveal no drainage. Neck reveals no JVD, carotid bruits, or thyromegaly. CHEST EXAMINATION: Trachea is central. Symmetrical expansion. Lung collier clear to auscultation and percussion. CARDIAC: Normal S1, S2 with no gallops. No murmurs ABDOMEN: Soft. Bowel sounds normal. No organomegaly. No abdominal bruits. Extremities: reveal no edema. No clubbing or cyanosis. Right toe amputation surgical site is bandaged.. Neurologically awake, alert, oriented x3 with well-coordinated movements. No focal deficits noted Skin: No rash or skin lesions. Psychiatric: Coperative. Nonsuicidal Musculoskeletal: No joint swelling or deformity. Normal range of motion. - Labs CBC & Chem 7: 11/18/18 03:33 11/19/18 07:21 Labs: Abnormal Lab Results - Last 24 Hours (Table) 11/20/18 11/20/18 11/20/18 Range/Units 07:11 12:14 17:16 POC Glucose (mg/dL) 107 H 108 H 116 H (75-99) mg/dL 11/20/18 Range/Units 20:27 POC Glucose (mg/dL) 116 H (75-99) mg/dL Microbiology - Last 24 Hours (Table) 11/15/18 18:54 Blood Culture - Preliminary Blood No Growth after 120 hours Assessment and Plan Assessment: Right great toe abscess with cellulitis with a diabetic ulcer. Failure of outpatient therapy. Status post amputation. Diabetes type 2. Diet controlled Gait dysfunction Hypertension Hypothyroidism Degenerative joint disease History of ingrown toenail on the right big toe previously Morbid obesity BMI 40.0 Plan: Patient be continued on broad-spectrum antibiotics. Status post right great toe amputation. Continue the antibiotics in the form of cefepime and vancomycin. Wound cultures are growing presumptive staph and Providentia. ID is on board. Further recommendations based on the clinical course. Time with Patient: Greater than 30
[2018-11-21] MEDS: LEVOTHYROXINE 100 MCG TAB PO SCH (05:20)
[2018-11-21 07:20] LABS: Glucose,Whole Blood 94 mg/dL (75-99)
[2018-11-21] MEDS: INSULIN ASPART (NovoLOG) 100 UNIT/ML VIAL SQ SCH ×4 (07:47→20:47)
[2018-11-21 08:06] LABS: Basophils # (A) 0.1 k/uL (0-0.2); Basophils % (A) 1 %; Eosinophils # (A) 0.4 k/uL (0-0.7); Eosinophils % (A) 6 %; HCT 37.9 % (39.0-53.0); HGB 11.9 gm/dL (13.0-17.5); Lymphocytes # (A) 1.3 k/uL (1.0-4.8); Lymphocytes % (A) 20 %; MCH 29.2 pg (25.0-35.0); MCHC 31.4 g/dL (31.0-37.0); MCV 93.1 fL (80.0-100.0); Mean Platelet Volume 9.1; Monocytes # (A) 0.4 k/uL (0-1.0); Monocytes % (A) 7 %; Neutrophils # (A) 4.1 k/uL (1.3-7.7); Neutrophils % (A) 65 %; Platelet Count 146 k/uL (150-450); RBC 4.07 m/uL (4.30-5.90); RDW 14.2 % (11.5-15.5); WBC 6.4 k/uL (3.8-10.6)
[2018-11-21] MEDS: LISINOPRIL-HCTZ 10-12.5 MG 1 EACH TAB PO SCH (08:12)
[2018-11-21 08:13] LABS: African American GFR (CKD) >90 (>60 ml/min/1.73 sqM); Anion Gap 7 mmol/L; Blood Urea Nitrogen 10 mg/dL (9-20); Calcium 9.2 mg/dL (8.4-10.2); Carbon Dioxide 32 mmol/L (22-30); Chloride 101 mmol/L (98-107); Glucose 102 mg/dL (74-99); Potassium 3.8 mmol/L (3.5-5.1); Sodium 140 mmol/L (137-145)
[2018-11-21] MEDS: CEFEPIME 2 GM in SODIUM CHLORIDE 0.9% 100 ML IVPB SCH ×2 (08:13→20:17)
[2018-11-21] MEDS: HEPARIN SODIUM,PORCINE 5,000 UNIT/ML 1 ML VIAL SQ SCH ×2 (08:13→20:17)
[2018-11-21] MEDS: LORATADINE 10 MG TAB PO PRN (08:18)
[2018-11-21 11:56] LABS: Glucose,Whole Blood 103 mg/dL (75-99)
--- NOTE | 2018-11-21 14:19 | PN ---
PROGRESS NOTE This is a 48-year-old gentleman who had wet gangrene of the right foot, big toe. Patient went for amputation. We have changed the dressing. Slight redness noted. No discharge noted. We will place extracellular at the skin edges and dressing will be applied and the patient advised nonweightbearing. Patient is under care of Dr. Mensah for IV antibiotic. I am going out of town for 2 weeks and I have discussed with Dr. Mensah. He will followed in his office. The patient's stitches should be removed in about 2 weeks. MMODL / IJN: [id number] /
--- NOTE | 2018-11-21 15:15 | P.PN ---
Subjective Progress Note Date: 11/21/18 Principal diagnosis: Right great toe abscess and cellulitis Patient is a 48-year-old male was admitted to hospital with right be toe abscess and possible cellulitis. Currently on broad-spectrum antibiotics. Patient is homeless and assess at [facility]. 11/18/2018 Patient denied any complaints of chest pain or shortness of breath. No nausea vomiting or abdominal pain. Right toe pain is better. Patient is being taken to or for right toe amputation as per vascular surgery. ID is on board. Follow-up culture final culture reports. Patient has been afebrile. No nausea vomiting or abdominal pain. 11/19/2018 patient is currently lying in the bed comfortably. Right foot pain is controlled with medications. Dressing change was done by surgery. Patient is being continued on IV antibiotics and ID is on board. 11/20/2018 Patient denied any complaints of fever or chills. Overnight patient had increased right toe pain and was given IV Dilaudid which seemed to improve his pain. No complaints of chest pain or shortness of breath. Currently on IV antibiotics in the form of cefepime and vancomycin. ID is following. Possible discharge in next 24 hours with ID final recommendations. Current medications reviewed. 11/21/2018 Patient is sitting up in bed in no acute distress. No acute overnight issues. Dr. Smith was in today and did the dressing change and patient will follow-up with infectious disease in the outpatient setting in 2 weeks for possible suture removal at that time. Patient denies any chest pain, shortness of breath, or palpitations at this time. Patient is afebrile. Patient denies any nausea or vomiting and is tolerating diet. After discussing with case management patient will likely be going to [place] at a [facility] as he is currently homeless. Patient is to remain non weight bearing of the right lower extremity. Guarded p rognosis. Objective - Vital Signs Vital signs: Vital Signs Temp 98.8 F 11/21/18 13:35 Pulse 61 11/21/18 13:35 Resp 16 11/21/18 13:35 BP 120/75 11/21/18 13:35 Pulse Ox 96 11/21/18 13:35 Intake & Output 11/20/18 11/21/18 11/21/18 18:59 06:59 18:59 Intake Total 100 1570 1000 Output Total 1000 2800 Balance -900 -1230 1000 Weight 130.181 kg Intake: Intake, IV Titration 100 200 Amount Cefepime 2 gm In Sodium 100 200 Chloride 0.9% 100 ml @ 200 mls/hr IVPB Q12HR [facility] Rx#:[id number] Oral 1370 1000 Output: Urine 1000 2800 Other: Voiding Method Toilet Toilet # Voids 1 3 # Bowel Movements 0 - Exam PHYSICAL EXAMINATION: Patient is sitting up in the bed comfortably, no acute distress, awake alert and oriented. Vital signs are stable. HEENT: Normocephalic. Neck is supple. Pupils reactive. Nostrils clear. Oral cavity is moist. Ears reveal no drainage. Neck reveals no JVD, carotid bruits, or thyromegaly. CHEST EXAMINATION: Trachea is central. Symmetrical expansion. Lung collier clear to auscultation and percussion. CARDIAC: Normal S1, S2 with no gallops. No murmurs ABDOMEN: Soft. Obese. Bowel sounds normal. No organomegaly. No abdominal bruits. Extremities: reveal no edema. No clubbing or cyanosis. Right toe amputation surgical site is bandaged and dry and intact with Marcus wrap over it and was just replaced this morning by Dr. Smith. Neurologically awake, alert, oriented x3 with well-coordinated movements. No focal deficits noted Skin: No rash or skin lesions. Psychiatric: Cooperative. Nonsuicidal Musculoskeletal: No joint swelling or deformity. Normal range of motion. - Labs CBC & Chem 7: 11/21/18 07:41 11/21/18 07:41 Labs: Abnormal Lab Results - Last 24 Hours (Table) 11/20/18 11/20/18 11/21/18 Range/Units 17:16 20:27 07:41 RBC 4.07 L (4.30-5.90) m/uL Hgb 11.9 L (13.0-17.5) gm/dL Hct 37.9 L (39.0-53.0) % Plt Count 146 L (150-450) k/uL Carbon Dioxide (22-30) mmol/L Creatinine (0.66-1.25) mg/dL Glucose (74-99) mg/dL POC Glucose (mg/dL) 116 H 116 H (75-99) mg/dL 11/21/18 11/21/18 Range/Units 07:41 11:54 RBC (4.30-5.90) m/uL Hgb (13.0-17.5) gm/dL Hct (39.0-53.0) % Plt Count (150-450) k/uL Carbon Dioxide 32 H (22-30) mmol/L Creatinine 0.54 L (0.66-1.25) mg/dL Glucose 102 H (74-99) mg/dL POC Glucose (mg/dL) 103 H (75-99) mg/dL Microbiology - Last 24 Hours (Table) 11/15/18 18:54 Blood Culture - Preliminary Blood No Growth after 120 hours Assessment and Plan Assessment: Right great toe abscess with cellulitis with a diabetic ulcer. Failure of outpatient therapy. Status post amputation. Diabetes mellitus type 2. Diet controlled Gait dysfunction Hypertension Hypothyroidism Degenerative joint disease History of ingrown toenail on the right big toe previously Morbid obesity BMI 40.0 Recommendations and discussion: Recommend continue current medications, management, and symptomatic treatment. Patient is currently on IV antibiotics per infectious disease recommendations will likely be discharged on oral antibiotics. Patient is currently homeless and case management and social work are following and arranging for placement at a [facility] in [facility]. Guarded prognosis. The recommendations based on the clinical course. Possible discharge in 24 hours.
--- NOTE | 2018-11-21 16:03 | PN ---
PROGRESS NOTE DATE OF SERVICE: 11/21/2018. REASON FOR FOLLOWUP: Right big toe osteomyelitis. INTERVAL HISTORY: The patient is currently afebrile. Patient has been breathing comfortably. Patient denies having any chest pain. No cough. No nausea, vomiting. No abdominal pain. No worsening pain to the right big toe area. PHYSICAL EXAMINATION: Blood pressure is 120/75 with a pulse of 51, temperature 98.8. He is 97% on room air. General description is a middle-aged male lying in bed in no distress. Respiratory system: Unlabored breathing. Clear to auscultation anteriorly. Heart S1, S2. Regular rate and rhythm. Abdomen soft, no tenderness. Right big toe distal digit amputation site wound looks clean with no slough tissue. Some swelling but no redness or drainage. LABS: Hemoglobin 11.8, white count 6.4, BUN of 10, creatinine 0.54. DIAGNOSTIC IMPRESSION AND PLAN: Patient with right big toe osteomyelitis, acute underlying diabetes mellitus. Culture positive for MSSA and Providencia. Patient is currently covered with cefepime, will be transitioned to Cipro and Keflex on discharge for at least 10 more days. Local wound care with Aquacel Silver dressing. Plan of care discussed with the surgeon on the floor. MMODL / IJN: [id number] /
[2018-11-21 17:09] LABS: Glucose,Whole Blood 102 mg/dL (75-99)
[2018-11-21 19:47] LABS: Hemoglobin A1C 5.8 % (4.0-6.0)
[2018-11-21 20:43] LABS: Glucose,Whole Blood 118 mg/dL (75-99)
[2018-11-22 01:37] VITALS: RESP 20
[2018-11-22 05:39] VITALS: TEMP 97.5
[2018-11-22] MEDS: LEVOTHYROXINE 100 MCG TAB PO SCH (06:11)
[2018-11-22 07:17] LABS: Glucose,Whole Blood 105 mg/dL (75-99)
[2018-11-22 07:36] VITALS: BP 101/66; PULSE 50
[2018-11-22] MEDS: HEPARIN SODIUM,PORCINE 5,000 UNIT/ML 1 ML VIAL SQ SCH (07:36)
[2018-11-22] MEDS: LISINOPRIL-HCTZ 10-12.5 MG 1 EACH TAB PO SCH (07:37)
[2018-11-22] MEDS: INSULIN ASPART (NovoLOG) 100 UNIT/ML VIAL SQ SCH ×2 (07:37→11:20)
[2018-11-22] MEDS: CEFEPIME 2 GM in SODIUM CHLORIDE 0.9% 100 ML IVPB SCH (07:37)
[2018-11-22] MEDS: HYDROcodone/APAP 5-325MG 1 EACH TAB PO PRN ×2 (07:40→14:17)
[2018-11-22 11:17] LABS: Glucose,Whole Blood 106 mg/dL (75-99)
--- NOTE | 2018-11-22 13:16 | PN ---
PROGRESS NOTE DATE OF SERVICE: 11/22/2018 REASON FOR FOLLOWUP: Right big toe osteomyelitis. INTERVAL HISTORY: The patient is currently afebrile. Patient has been breathing comfortably. Patient denies having any chest pain. No shortness of breath or cough. No nausea, vomiting. No abdominal pain or any worsening pain to the right big toe area. PHYSICAL EXAMINATION: On examination, blood pressure is 101/66, pulse of 50, temperature 97.5. He is 96% on room air. General description is a middle-aged male lying in bed in no distress. RESPIRATORY SYSTEM: Unlabored breathing, clear to auscultation anteriorly. HEART: S1, S2. Regular rate and rhythm. ABDOMEN: Soft, no tenderness. Right big toe is currently dressed up, no obvious drainage on the dressing. DIAGNOSTIC IMPRESSION AND PLAN: Patient with acute right big toe osteomyelitis, status post amputation of the distal digit by Vascular Surgery and infected part has been removed and the patient is not . The patient's antibiotic was switched to oral Keflex and Cipro for 10 days and follow up in the office in 1 week. Local wound care with Aquacel silver dressing. All questions and concerns were answered. MMODL / IJN: [id number] /
--- NOTE | 2018-11-22 17:03 | P.DS ---
Providers Date of admission: 11/17/18 09:21 Expected date of discharge: 11/22/18 Attending physician: Stephani Roberts Consults: 11/15/18 18:37 Consult Physician Routine Consulting Provider: Bryan Smith Consult Reason/Comments: toe pain Do you want consulting provider notified?: Yes 11/15/18 21:49 Consult Physician Routine Consulting Provider: Norma Mcdermott Consult Reason/Comments: toe infection Do you want consulting provider notified?: Yes Primary care physician: Magdiel Hernandez [facility] Course: Final diagnosis Right great toe abscess with cellulitis with a diabetic ulcer. Failure of outpatient therapy. Status post amputation Diabetes mellitus type 2. Diet controlled Gait dysfunction Hypertension Hypothyroidism Degenerative joint disease History of ingrown toenail on the right big toe previously Morbid obesity with a BMI of 40.0 Discharge disposition Patient Is being discharged in a stable condition with guarded prognosis to [facility] in [place] as he is currently homeless and will be following up with the wound care clinic in the outpatient setting 2 weeks. Patient will continue on oral antibiotics per infectious disease recommendations in the form of Cipro and Keflex. Total time taken is 35 minutes. History of present illness This is a 48-year-old male who was recently admitted to the hospital hospital for right great toe abscess and possible cellulitis and was being closely monitored. Patient was seen by Dr. Smith and Dr. Mcdermott with infectious disease. During hospitalization patient underwent right great toe amputation with vascular surgery. Patient will be following up with infectious disease and wound care as scheduled in 2 weeks. Currently patient's condition is stable with much improvement and is ready for discharge. Patient denies any chest pain, shortness of breath, or palpitations at this time. Patient is afebrile. Patient denies any nausea or vomiting is tolerating diet. Patient is using a walker as he is to remain nonweight bearing of the right lower extremity until follow-up. Discussed with the patient about elevating the right lower extremity while at rest. Guarded prognosis. Exam vital signs are stable. Temp is 97.5F, pulse is 5o, respirations are 20, blood pressure is 101/66, oxygen saturation is 96% on room air. Cardio S1 and S2 are muffled. Respiratory system is clear to auscultation. Abdomen is soft, obese, nontender. Nervous system shows no focal deficits. Please refer to medication reconciliation sheet for a list of medications. Patient Condition at Discharge: Fair Plan - Discharge Summary New Discharge Prescriptions: New Ciprofloxacin HCl [Cipro] 500 mg PO BID 10 Days #20 tab Cephalexin [Keflex] 500 mg PO Q6HR 10 Days #40 cap Ibuprofen [Motrin] 400 mg PO Q6HR PRN tab PRN Reason: Pain HYDROcodone/APAP 5-325MG [[place] 5-325] 1 each PO Q6HR PRN #12 tab PRN Reason: Pain Continue Loratadine [Claritin] 10 mg PO DAILY PRN PRN Reason: Allergy Symptoms Lisinopril-Hctz 10-12.5 mg [Zestoretic 10-12.5] 1 tab PO DAILY Levothyroxine Sodium [Synthroid] 100 mcg PO DAILY Discontinued Amoxic-Pot Clav 500-125 mg [Augmentin 500-125 mg] 1 tab PO TID Discharge Medication List Levothyroxine Sodium [Synthroid] 100 mcg PO DAILY 11/15/18 [History] Lisinopril-Hctz 10-12.5 mg [Zestoretic 10-12.5] 1 tab PO DAILY 11/15/18 [History] Loratadine [Claritin] 10 mg PO DAILY PRN 11/15/18 [History] Cephalexin [Keflex] 500 mg PO Q6HR 10 Days #40 cap 11/22/18 [Rx] Ciprofloxacin HCl [Cipro] 500 mg PO BID 10 Days #20 tab 11/22/18 [Rx] HYDROcodone/APAP 5-325MG [[place] 5-325] 1 each PO Q6HR PRN #12 tab 11/22/18 [Rx] Ibuprofen [Motrin] 400 mg PO Q6HR PRN tab 11/22/18 [Rx] Follow up Appointment(s)/Referral(s): Magdiel Osborne DO [Primary Care Provider] - 11/25/18 9:30 am Norma Mcdermott MD [STAFF PHYSICIAN] - 12/06/18 2:00 pm Patient Instructions/Handouts: Care For Your Stitches (DC), Toe Amputation (DC) Activity/Diet/Wound Care/Special Instructions: right toe amputation 11/18/18. stitches to be removed in 2 weeks at follow up appointment with dr mcdermott right heel weight bearing only consistent carb diet as tolerated complete entire Oral antibiotic script follow up with pcp upon discharge Discharge Disposition: HOME SELF-CARE
== END 2018-11-22 14:43 | disposition home or self-care (01) | DRG 617 ==
LOC: EC 17:37 → 4MS4W 18:37 → OBSVTOIN 11-17 09:21
PROVIDERS: ADMIT Hospitalist; ATTEND Hospitalist
PROC: 0Y6P0Z0 Detachment at Right 1st Toe, Complete, Open Approach (ICD-10-PCS; principal; 2018-11-18 18:35)
DX: E11.621 Type 2 diabetes mellitus with foot ulcer (principal); E11.52 Type 2 diabetes mellitus with diabetic peripheral angiopathy with gangrene; Z68.41 Body mass index [BMI] 40.0-44.9, adult; L02.611 Cutaneous abscess of right foot; M86.171 Other acute osteomyelitis, right ankle and foot; E11.69 Type 2 diabetes mellitus with other specified complication; E03.9 Hypothyroidism, unspecified; E66.01 Morbid (severe) obesity due to excess calories; I10 Essential (primary) hypertension; L03.031 Cellulitis of right toe; L97.519 Non-pressure chronic ulcer of other part of right foot with unspecified severity; M19.90 Unspecified osteoarthritis, unspecified site; Z59.0 Homelessness; Z79.4 Long term (current) use of insulin; Z79.890 Hormone replacement therapy; B95.61 Methicillin susceptible Staphylococcus aureus infection as the cause of diseases classified elsewhere; B96.89 Other specified bacterial agents as the cause of diseases classified elsewhere
CPT/HCPCS: 36415; 78315; 80048; 80053; 80202; 81003; 83036; 83605; 83735; 84100; 84134; 85025; 85610; 85652; 85730; 86140; 87040; 87070; 87077; 87186; 87205; 88305; 88311; 93005; 96365; 99285

== ENCOUNTER 2019-01-14 02:28 | Inpatient (IN) | payer OTHER ==
[2019-01-14] MEDS ORDERED: HYDROmorphone 1 MG/ML 1 ML SYRINGE IVP STA (02:31)
[2019-01-14] MEDS ORDERED: SODIUM CHLORIDE 0.9% 1,000 ML IV STA (02:31)
[2019-01-14] MEDS ORDERED: DIAZEPAM 5 MG/ML 2 ML INJ IVP STA (02:32)
--- NOTE | 2019-01-14 02:42 | ED ---
Abdominal Pain HPI - General Stated Complaint: abd pain Time Seen by Provider: 01/14/19 02:31 Source: patient, EMS, RN notes reviewed Mode of arrival: EMS Limitations: no limitations - History of Present Illness Initial Comments: Bayron is a 48-year-old gentleman who presents to the emergency department today via EMS as a transfer for an outside hospital. Patient presented to the emergency department this evening with complaints of umbilical abdominal pain. Patient has a large umbilical hernia which he reports he's had for quite a while, he knows he needs surgical repair. He states that this afternoon it popped out and he hasn't been able to dictate go back in. Labs outside facility were relatively unremarkable had mild leukocytosis, normal kidney function, normal electrolytes. Computed tomography scan obtained with IV contrast revealed a strangulated hernia with a single loop of small bowel no signs of obstruction. Patient was treated with pain management and IV Zosyn prior to transfer. On arrival patient reports moderate pain which is worse with palpation. - Related Data Home Medications Medication Instructions Recorded Confirmed Levothyroxine Sodium [Synthroid] 100 mcg PO DAILY 11/15/18 11/15/18 Lisinopril-Hctz 10-12.5 mg 1 tab PO DAILY 11/15/18 11/15/18 [Zestoretic 10-12.5] Loratadine [Claritin] 10 mg PO DAILY PRN 11/15/18 11/15/18 Previous Rx's Medication Instructions Recorded Cephalexin [Keflex] 500 mg PO Q6HR 10 Days #40 cap 11/22/18 Ciprofloxacin HCl [Cipro] 500 mg PO BID 10 Days #20 tab 11/22/18 HYDROcodone/APAP 5-325MG [[place] 1 each PO Q6HR PRN #12 tab 11/22/18 5-325] Ibuprofen [Motrin] 400 mg PO Q6HR PRN tab 11/22/18 Allergies Allergy/AdvReac Type Severity Reaction Status Date / Time No Known Allergies Allergy Verified 11/15/18 19:02 Review of Systems ROS Statement: Those systems with pertinent positive or pertinent negative responses have been documented in the HPI. ROS Other: All systems not noted in ROS Statement are negative. Past Medical History Past Medical History: Diabetes Mellitus, Hypertension, Thyroid Disorder Additional Past Medical History / Comment(s): hernia History of Any Multi-Drug Resistant Organisms: None Reported Past Surgical History: Orthopedic Surgery Additional Past Surgical History / Comment(s): lt thumb trigger thumb Past Anesthesia/Blood Transfusion Reactions: No Reported Reaction Additional Past Anesthesia/Blood Transfusion Reaction / Comment(s): Uncle on mother's side had a reaction to anesthesia during ortho surgery and prior to surgery, had heart problems Past Psychological History: No Psychological Hx Reported Smoking Status: Never smoker Past Alcohol Use History: Rare Past Drug Use History: Marijuana General Exam - General Exam Comments Initial Comments: Physical Exam GENERAL: Patient is well-developed and well-nourished. Patient is nontoxic and well- hydrated and is in no distress. HENT: Normocephalic, Atraumatic. EYES: PERRL, EOMI PULMONARY: Unlabored respirations. No audible rales rhonchi or wheezing was noted. CARDIOVASCULAR: There is a regular rate and rhythm without any murmurs gallops or rubs. ABDOMEN: Obese Large umbilical hernia, firm with no overlying skin changes SKIN: Skin is clear with no lesions or rashes and otherwise unremarkable. : Deferred NEUROLOGIC: Patient is alert and oriented x3. Moving all extremities spontaneously MUSCULOSKELETAL: Normal extremities with adequate strength and full range of motion. No lower extremity swelling or edema. No calf tenderness. PSYCHIATRIC: Normal psychiatric evaluation. Limitations: no limitations Course Vital Signs 01/14/19 01/14/19 01/14/19 02:31 03:00 04:43 Temperature 98.7 F Pulse Rate 68 56 L 60 Respiratory 18 98 H 18 Rate Blood Pressure 141/73 134/61 127/65 O2 Sat by Pulse 100 100 Oximetry Medical Decision Making - Medical Decision Making The patient was seen and evaluated immediately upon arrival emergency department Patient was reported to have a strangulated umbilical hernia On physical exam the patient does have a large approximately grapefruit size umbilical hernia with minimal discomfort. There is no overlying skin changes. Repeat labs were ordered and patient was given both Dilaudid and Valium, placed in a head down position and attempts at hernia reduction were made for approximately 10 minutes with no change in patient's hernia size. At this time this hernia is unreducible, general surgery was paged. Labs resulted with no significant abnormalities there is no leukocytosis or lactic acidosis, normal kidney function and electrolytes. Patient care was discussed with surgeon therapist radiation Dr. cunningham who plan see the patient to the operating room this morning for exploratory laparoscopy and hernia repair. Given the patient's multiple medical comorbidities he requests the patient be admitted to the hospitalists for medical management and he will manage surgical needs. Patient care was discussed with Dr. Brown of the [facility] [place] [facility] who accepts the admission. - Lab Data Result diagrams: 01/14/19 04:30 01/14/19 04:30 Lab Results 01/14/19 01/14/19 01/14/19 Range/Units 04:30 04:30 04:30 WBC 10.1 (3.8-10.6) k/uL RBC 4.73 (4.30-5.90) m/uL Hgb 14.3 (13.0-17.5) gm/dL Hct 42.4 (39.0-53.0) % MCV 89.5 (80.0-100.0) fL MCH 30.1 (25.0-35.0) pg MCHC 33.7 (31.0-37.0) g/dL RDW 14.2 (11.5-15.5) % Plt Count 186 (150-450) k/uL Neutrophils % 78 % Lymphocytes % 14 % Monocytes % 6 % Eosinophils % 1 % Basophils % 0 % Neutrophils # 7.9 H (1.3-7.7) k/uL Lymphocytes # 1.4 (1.0-4.8) k/uL Monocytes # 0.6 (0-1.0) k/uL Eosinophils # 0.1 (0-0.7) k/uL Basophils # 0.0 (0-0.2) k/uL Sodium 135 L (137-145) mmol/L Potassium 3.7 (3.5-5.1) mmol/L Chloride 96 L (98-107) mmol/L Carbon Dioxide 30 (22-30) mmol/L Anion Gap 9 mmol/L BUN 10 (9-20) mg/dL Creatinine 0.58 L (0.66-1.25) mg/dL Est GFR (CKD-EPI)AfAm >90 (>60 ml/min/1.73 sqM) Est GFR (CKD-EPI)NonAf >90 (>60 ml/min/1.73 sqM) Glucose 124 H (74-99) mg/dL Plasma Lactic Acid Lyle 1.3 (0.7-2.0) mmol/L Calcium 9.5 (8.4-10.2) mg/dL Total Bilirubin 0.9 (0.2-1.3) mg/dL AST 21 (17-59) U/L ALT 27 (21-72) U/L Alkaline Phosphatase 70 (38-126) U/L Total Protein 7.4 (6.3-8.2) g/dL Albumin 4.3 (3.5-5.0) g/dL Blood Type Recheck Bld Type Recheck Status Spec Expiration Date 01/14/19 Range/Units 04:30 WBC (3.8-10.6) k/uL RBC (4.30-5.90) m/uL Hgb (13.0-17.5) gm/dL Hct (39.0-53.0) % MCV (80.0-100.0) fL MCH (25.0-35.0) pg MCHC (31.0-37.0) g/dL RDW (11.5-15.5) % Plt Count (150-450) k/uL Neutrophils % % Lymphocytes % % Monocytes % % Eosinophils % % Basophils % % Neutrophils # (1.3-7.7) k/uL Lymphocytes # (1.0-4.8) k/uL Monocytes # (0-1.0) k/uL Eosinophils # (0-0.7) k/uL Basophils # (0-0.2) k/uL Sodium (137-145) mmol/L Potassium (3.5-5.1) mmol/L Chloride (98-107) mmol/L Carbon Dioxide (22-30) mmol/L Anion Gap mmol/L BUN (9-20) mg/dL Creatinine (0.66-1.25) mg/dL Est GFR (CKD-EPI)AfAm (>60 ml/min/1.73 sqM) Est GFR (CKD-EPI)NonAf (>60 ml/min/1.73 sqM) Glucose (74-99) mg/dL Plasma Lactic Acid Lyle (0.7-2.0) mmol/L Calcium (8.4-10.2) mg/dL Total Bilirubin (0.2-1.3) mg/dL AST (17-59) U/L ALT (21-72) U/L Alkaline Phosphatase (38-126) U/L Total Protein (6.3-8.2) g/dL Albumin (3.5-5.0) g/dL Blood Type Recheck No Previous Record Bld Type Recheck Status CABO Indicated Spec Expiration Date 01/17/20192329 Disposition Clinical Impression: Umbilical hernia without obstruction and without gangrene Disposition: ADMITTED IP TO THIS HOSP Condition: Stable Is patient prescribed a controlled substance at d/c from ED?: No Referrals: Tommy Osborne DO [Primary Care Provider] - 1-2 days
[2019-01-14 04:47] LABS: Basophils % (A) 0 %; Eosinophils # (A) 0.1 k/uL (0-0.7); Eosinophils % (A) 1 %; HCT 42.4 % (39.0-53.0); HGB 14.3 gm/dL (13.0-17.5); Lymphocytes # (A) 1.4 k/uL (1.0-4.8); Lymphocytes % (A) 14 %; MCH 30.1 pg (25.0-35.0); MCHC 33.7 g/dL (31.0-37.0); MCV 89.5 fL (80.0-100.0); Mean Platelet Volume 8.9; Monocytes # (A) 0.6 k/uL (0-1.0); Monocytes % (A) 6 %; Neutrophils # (A) 7.9 k/uL (1.3-7.7); Neutrophils % (A) 78 %; Platelet Count 186 k/uL (150-450); RBC 4.73 m/uL (4.30-5.90); RDW 14.2 % (11.5-15.5); WBC 10.1 k/uL (3.8-10.6)
[2019-01-14 04:55] LABS: ALT 27 U/L (21-72); AST 21 U/L (17-59); African American GFR (CKD) >90 (>60 ml/min/1.73 sqM); Albumin 4.3 g/dL (3.5-5.0); Alkaline Phosphatase 70 U/L (38-126); Anion Gap 9 mmol/L; Blood Urea Nitrogen 10 mg/dL (9-20); Calcium 9.5 mg/dL (8.4-10.2); Carbon Dioxide 30 mmol/L (22-30); Chloride 96 mmol/L (98-107); Glucose 124 mg/dL (74-99); Non-African American GFR(CKD) >90 (>60 ml/min/1.73 sqM); Potassium 3.7 mmol/L (3.5-5.1); Sodium 135 mmol/L (137-145); Total Bilirubin 0.9 mg/dL (0.2-1.3); Total Protein 7.4 g/dL (6.3-8.2)
[2019-01-14] MEDS ORDERED: MORPHINE SULFATE 4 MG/ML SYRINGE IV PRN (05:17)
[2019-01-14] MEDS ORDERED: ONDANSETRON 4 MG/2 ML VIAL IVP PRN ×2 (05:17→06:45)
[2019-01-14] MEDS ORDERED: NALOXONE 0.4 MG/ML 1 ML VIAL IV PRN ×2 (05:17→09:04)
[2019-01-14] MEDS ORDERED: SODIUM CHLORIDE 0.9% 1,000 ML IV SCH (05:30)
--- NOTE | 2019-01-14 06:13 | P.GSCN ---
History of Present Illness Consult date: 01/14/19 History of present illness: This a 48-year-old obese male who has multiple medical comorbidities including diabetes and osteomyelitis. He states he's had a long-standing umbilical hernia. He states that normal limits reducible. He states that over the last 24 hours hernia has become larger and more painful. He's been unable to reduce the hernia. He went to an outside hospital where he had a computed tomography scan which showed concerning signs for strangulation. The patient does deny any current nausea or vomiting. His last bowel movement was yesterday. There is reported to be a loop of bowel in the hernia on the computed tomography scan. He states hernias tender to the touch. This is a new finding for him. Past Medical History Past Medical History: Diabetes Mellitus, Hypertension, Thyroid Disorder Additional Past Medical History / Comment(s): hernia History of Any Multi-Drug Resistant Organisms: None Reported Past Surgical History: Orthopedic Surgery Additional Past Surgical History / Comment(s): lt thumb trigger thumb Past Anesthesia/Blood Transfusion Reactions: No Reported Reaction Additional Past Anesthesia/Blood Transfusion Reaction / Comm: Uncle on mother's side had a reaction to anesthesia during ortho surgery and prior to surgery, had heart problems Past Psychological History: No Psychological Hx Reported Smoking Status: Never smoker Past Alcohol Use History: Rare Past Drug Use History: Marijuana Medications and Allergies Home Medications Medication Instructions Recorded Confirmed Type Levothyroxine Sodium [Synthroid] 100 mcg PO DAILY 11/15/18 11/15/18 History Lisinopril-Hctz 10-12.5 mg 1 tab PO DAILY 11/15/18 11/15/18 History [Zestoretic 10-12.5] Loratadine [Claritin] 10 mg PO DAILY PRN 11/15/18 11/15/18 History Cephalexin [Keflex] 500 mg PO Q6HR 10 Days #40 cap 11/22/18 Rx Ciprofloxacin HCl [Cipro] 500 mg PO BID 10 Days #20 tab 11/22/18 Rx HYDROcodone/APAP 5-325MG [[place] 1 each PO Q6HR PRN #12 tab 11/22/18 Rx 5-325] Ibuprofen [Motrin] 400 mg PO Q6HR PRN tab 11/22/18 Rx Allergies Allergy/AdvReac Type Severity Reaction Status Date / Time No Known Allergies Allergy Verified 11/15/18 19:02 Surgical - Exam Osteopathic Statement: *. No significant issues noted on an osteopathic structural exam other than those noted in the History and Physical/Consult. Vital Signs Temp Pulse Resp BP Pulse Ox 98.7 F 68 18 141/73 100 01/14/19 02:31 01/14/19 02:31 01/14/19 02:31 01/14/19 02:31 01/14/19 02:31 - General well developed, obese - Eyes PERRL - Neck trachea midline - Respiratory normal expansion, normal respiratory effort - Cardiovascular Rhythm: regular - Abdomen soft obese incarcerated umbilical hernia which is tender to palpation - Psychiatric oriented to time, oriented to person, oriented to place Results - Labs 01/14/19 04:30 01/14/19 04:30 Abnormal Lab Results - Last 24 Hours (Table) 01/14/19 01/14/19 Range/Units 04:30 04:30 Neutrophils # 7.9 H (1.3-7.7) k/uL Sodium 135 L (137-145) mmol/L Chloride 96 L (98-107) mmol/L Creatinine 0.58 L (0.66-1.25) mg/dL Glucose 124 H (74-99) mg/dL Diabetes panel 01/14/19 Range/Units 04:30 Sodium 135 L (137-145) mmol/L Potassium 3.7 (3.5-5.1) mmol/L Chloride 96 L (98-107) mmol/L Carbon Dioxide 30 (22-30) mmol/L BUN 10 (9-20) mg/dL Creatinine 0.58 L (0.66-1.25) mg/dL Glucose 124 H (74-99) mg/dL Calcium 9.5 (8.4-10.2) mg/dL AST 21 (17-59) U/L ALT 27 (21-72) U/L Alkaline Phosphatase 70 (38-126) U/L Total Protein 7.4 (6.3-8.2) g/dL Albumin 4.3 (3.5-5.0) g/dL Calcium panel 01/14/19 Range/Units 04:30 Calcium 9.5 (8.4-10.2) mg/dL Albumin 4.3 (3.5-5.0) g/dL Pituitary panel 01/14/19 Range/Units 04:30 Sodium 135 L (137-145) mmol/L Potassium 3.7 (3.5-5.1) mmol/L Chloride 96 L (98-107) mmol/L Carbon Dioxide 30 (22-30) mmol/L BUN 10 (9-20) mg/dL Creatinine 0.58 L (0.66-1.25) mg/dL Glucose 124 H (74-99) mg/dL Calcium 9.5 (8.4-10.2) mg/dL Adrenal panel 01/14/19 Range/Units 04:30 Sodium 135 L (137-145) mmol/L Potassium 3.7 (3.5-5.1) mmol/L Chloride 96 L (98-107) mmol/L Carbon Dioxide 30 (22-30) mmol/L BUN 10 (9-20) mg/dL Creatinine 0.58 L (0.66-1.25) mg/dL Glucose 124 H (74-99) mg/dL Calcium 9.5 (8.4-10.2) mg/dL Total Bilirubin 0.9 (0.2-1.3) mg/dL AST 21 (17-59) U/L ALT 27 (21-72) U/L Alkaline Phosphatase 70 (38-126) U/L Total Protein 7.4 (6.3-8.2) g/dL Albumin 4.3 (3.5-5.0) g/dL Assessment and Plan Assessment: incarcerated umbilical hernia bowel containing Diabetes Morbid obesity Plan: plan is for exploratory laparotomy possible bowel resection and hernia repair. Discussed this plan with the patient in detail including risks of bleeding infection damage surrounding tissue need for further operation, I also discussed with the patient he has a very high likelihood of recurrence due to his weight and comorbidities. Patient stated he understood agreed and consented. Patient to be admitted to medicine for medical care due to his comorbidities.
[2019-01-14] MEDS ORDERED: LIDOCAINE 1% 20 ML VIAL (10MG/ML) FOR IV START INTRADERMA PRN (06:45)
[2019-01-14] MEDS ORDERED: fentaNYL (PF) 50 MCG/ML 2 ML AMP ONE (06:53)
[2019-01-14] MEDS ORDERED: ROCURONIUM BROMIDE 10 MG/ML 10 ML VIAL IV ONE (06:53)
[2019-01-14] MEDS ORDERED: PROPOFOL 10 MG/ML 20 ML VIAL IV ONE (06:53)
[2019-01-14] MEDS ORDERED: NEOSTIGMINE 1 MG/ML 10 ML VIAL ONE (06:53)
[2019-01-14] MEDS ORDERED: LIDOCAINE 1% INJ 10MG/ML (20 ML MDV) ONE (06:53)
[2019-01-14] MEDS ORDERED: GLYCOPYRROLATE 0.2 MG/ML 2 ML VIAL ONE (06:53)
[2019-01-14] MEDS ORDERED: MIDAZOLAM 2 MG/2 ML VIAL ONE (06:53)
[2019-01-14] MEDS ORDERED: SUCCINYLCHOLINE CHLORIDE 100 MG/5 ML SYR IV ONE (06:53)
[2019-01-14] MEDS ORDERED: SODIUM CHLORIDE 0.9% 1,000 ML IV ONE (06:58)
[2019-01-14] MEDS ORDERED: ceFAZolin 1,000 MG VIAL IVPB ONE (07:15)
[2019-01-14] MEDS ORDERED: LACTATED RINGERS 1,000 ML IV ONE ×4 (07:33→08:40)
[2019-01-14] MEDS ORDERED: ACETAMINOPHEN IV (For NPO) 1,000 MG in EMPTY BAG 1 BAG IVPB ONE (09:04)
--- NOTE | 2019-01-14 09:04 | P.OP ---
Date of Procedure: 01/14/19 Preoperative Diagnosis: Incarcerated ventral hernia Postoperative Diagnosis: Strangulated ventral hernia Procedure(s) Performed: Exploratory laparotomy with small bowel resection and repair of strangulate ventral hernia Anesthesia: CELIA Surgeon: Roe Dai Estimated Blood Loss (ml): 100 Condition: stable Disposition: floor Description of Procedure: Patient was brought to the operative suite remained in the supine position underwent general endotracheal anesthesia per Department of anesthesia prepped and draped in usual sterile fashion timeout performed correct patient correct procedure correct site was verified. A midline incision was made in the skin directly over the hernia site and above and below. Above and below were carried down to the fascia the hernia was circumferentially cleared there was a small defect noted however there was a very large hernia sac with incarcerated content s. The hernia sac was opened. There was noted to be necrotic small bowel noted within the hernia. There was also compromised omentum. The hernia defect was widened to allow for small bowel resection and omental resection. 75 mm blue load Endo JAYDA stapler was used to staple proximal and distal to the small bowel long healthy small bowel. Approximately 6 cm piece of necrotic small bowel was resected. The 75 mm blue load Endo JAYDA stapler was then used to make a [id number] functional end-to-end anastomosis. 55 mm TX linear stapler was used to close the common enterotomy. This was then oversewn with a 3-0 Vicryl in a Lembert fashion. Crotch stitch was placed. The omentum that was in the string rated hernia was also resected with a LigaSure device. Hemostasis was noted. KIKI drain 19-Irish was placed. Abdomen was irrigated and hemostasis was noted. The midline fascia was then closed with a 1 PDS looped suture. Skin was closed with skin ade. Sterile dressing was applied patient tolerated the procedure well no apparent complications
[2019-01-14] MEDS: HYDROmorphone 0.5 MG/0.5 ML SYRINGE IVP PRN ×3 (09:40→10:20)
[2019-01-14 09:44] LABS: Prothrombin Time 10.9 sec (9.0-12.0)
[2019-01-14 10:42] LABS: Glucose,Whole Blood 149 mg/dL (75-99)
[2019-01-14 11:24] LABS: Glucose,Whole Blood 142 mg/dL (75-99)
[2019-01-14] MEDS ORDERED: KETOROLAC 30 MG/ML 1 ML VIAL IVP SCH (12:00)
[2019-01-14 12:47] LABS: HCT 39.4 % (39.0-53.0); HGB 13.2 gm/dL (13.0-17.5); MCH 30.6 pg (25.0-35.0); MCHC 33.5 g/dL (31.0-37.0); MCV 91.4 fL (80.0-100.0); Mean Platelet Volume 8.5; Platelet Count 184 k/uL (150-450); RBC 4.31 m/uL (4.30-5.90); RDW 14.2 % (11.5-15.5); WBC 11.5 k/uL (3.8-10.6)
[2019-01-14] MEDS: INSULIN ASPART (NovoLOG) 100 UNIT/ML VIAL SQ SCH ×4 (12:58→20:59)
[2019-01-14] MEDS: LACTATED RINGERS 1,000 ML IV SCH ×3 (12:59→17:40)
--- NOTE | 2019-01-14 13:40 | P.HPIM ---
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 Apparently the patient has had a large umbilical hernia for several years and has previously resisted surgery. Yesterday apparently the patient stated that his hernia bulged out and he has been unable to put it back in, he reports his pain as mild to moderate, without radiation with some associated nausea but no vomiting. The patient had a bowel movement yesterday. Review of records indicates the patient a mild leukocytosis, with normal electrolytes and kidney function. CT abdomen and pelvis with contrast indicated as translated hernia with a single loop of small bowel with no signs of obstruction, patient was given empiric IV antibiotics with Zosyn, IV fluids and pain medication before being transferred here. The patient was seen by general surgery on-call Dr. dai and underwent expiratory laparotomy with small bowel resection and repair of strangulated ventral hernia. Patient did well postop and is currently nothing by mouth reports his pain is controlled Labs indicated as white count of 10.1 hemoglobin 14.3 platelets 186, serum sodium 135, chloride 96, blood sugar 124, creatinine 0.58 Review of Systems Pertinent positives per HPI all other review of systems are otherwise negative Past Medical History Past Medical History: Diabetes Mellitus, Hypertension, Thyroid Disorder Additional Past Medical History / Comment(s): hernia History of Any Multi-Drug Resistant Organisms: None Reported Past Surgical History: Orthopedic Surgery Additional Past Surgical History / Comment(s): lt thumb trigger thumb Past Anesthesia/Blood Transfusion Reactions: No Reported Reaction Additional Past Anesthesia/Blood Transfusion Reaction / Comment(s): Uncle on mother's side had a reaction to anesthesia during ortho surgery and prior to surgery, had heart problems Past Psychological History: No Psychological Hx Reported Smoking Status: Never smoker Past Alcohol Use History: Rare Past Drug Use History: Marijuana Medications and Allergies Home Medications Medication Instructions Recorded Confirmed Type Levothyroxine Sodium [Synthroid] 100 mcg PO DAILY 11/15/18 01/14/19 History Lisinopril-Hctz 10-12.5 mg 1 tab PO DAILY 11/15/18 01/14/19 History [Zestoretic 10-12.5] Loratadine [Claritin] 10 mg PO DAILY 11/15/18 01/14/19 History Allergies Allergy/AdvReac Type Severity Reaction Status Date / Time No Known Allergies Allergy Verified 01/14/19 11:41 Physical Exam Vitals: Vital Signs Temp Pulse Pulse Resp BP BP Pulse Ox 01/14/19 10:10 49 L 16 128/58 100 01/14/19 09:50 51 L 16 145/67 100 01/14/19 09:37 50 L 16 154/74 100 01/14/19 09:22 97.7 F 100 16 132/71 100 01/14/19 04:43 60 18 127/65 100 01/14/19 03:00 56 L 98 H 134/61 01/14/19 02:31 98.7 F 68 18 141/73 100 Intake and Output 01/13/19 01/14/19 01/14/19 22:59 06:59 14:59 Intake Total 800 1600 Output Total 400 Balance 800 1200 Intake: IV 800 1600 Output: Urine 300 Estimated Blood Loss 100 Other: Weight 136.985 kg Constitutional: No acute distress, conversant, pleasant Eyes: Anicteric sclerae, moist conjunctiva, no lid-lag, PERRLA ENMT: NC/AT,Oropharynx clear, no erythema, exudates Neck:Supple, FROM, no masses, or JVD, No carotid bruits; No thyromegaly Lungs: Clear to auscultation, Clear to percussion, Normal respiratory effort, no accessory muscle use Cardiovascular: Heart regular in rate and rhythm, No murmurs, gallops, or rubs no peripheral edema Abdominal: Soft tender to percussion around incision sites, hypoactive bowel sounds, abdominal binder was KIKI drain with bloody output Skin: Normal temperature, tone, texture, turgor, No induration No subcutaneous nodules, No rash, lesions, No ulcers Extremities:No digital cyanosis No clubbing, Pedal pulses intact and symmetrical Radial pulses intact and symmetrical Normal gait and station, No calf tenderness Psychiatric: Alert and oriented to person, place and time, Appropriate affect Intact judgement Neuro: Muscles Strength 5/5 in all 4 extremities, Sensation to light touch grossly present throughout, Cranial nerves II-XII grossly intact. No focal sensory deficits Results CBC & Chem 7: 01/14/19 12:21 01/14/19 04:30 Labs: Abnormal Lab Results - Last 24 Hours (Table) 01/14/19 01/14/19 01/14/19 Range/Units 04:30 04:30 10:36 Neutrophils # 7.9 H (1.3-7.7) k/uL Sodium 135 L (137-145) mmol/L Chloride 96 L (98-107) mmol/L Creatinine 0.58 L (0.66-1.25) mg/dL Glucose 124 H (74-99) mg/dL POC Glucose (mg/dL) 149 H (75-99) mg/dL Thrombosis Risk Factor Assmnt - Choose All That Apply Each Factor Represents 1 point: Age 41-60 years Thrombosis Risk Factor Assessment Total Risk Factor Score: 1 Thrombosis Risk Factor Assessment Level: Low Risk Assessment and Plan Assessment: Essential hypertension Hyperlipidemia Type 2 diabetes History of osteomyelitis Incarcerated umbilical hernia status post Plan: The patient is admitted anticipated greater than 2 midnight stay with incarcerated umbilical hernia after being transferred here from outside hospital after presenting there with abdominal pain, the patient underwent expiratory laparotomy and small bowel resection and repair of strangulated ventral umbilical hernia, postop is doing well and reports his pain is well controlled. Hemodynamically the patient is stable and is currently nothing by mouth we'll continue to monitor closely continue supportive management with IV fluids her for hydration antiemetics as needed and Dilaudid as needed for pain. Defer postoperative surgical management to Dr. Dai, the patient continues with abdominal binder and a KIKI drain in place. Patient continues on Protonix and Reglan. Continue to follow his clinical course CODE STATUS: Full code anticipated discharge: 2-3 days
[2019-01-14] MEDS: HYDROmorphone 1 MG/ML 1 ML SYRINGE IVP PRN ×3 (14:20→22:09)
[2019-01-14] MEDS: METOCLOPRAMIDE 5 MG/ML 2 ML VIAL IVP SCH ×3 (14:21→22:08)
[2019-01-14 17:28] LABS: Glucose,Whole Blood 113 mg/dL (75-99)
[2019-01-14] MEDS: HEPARIN SODIUM,PORCINE 5,000 UNIT/ML 1 ML VIAL SQ SCH (17:41)
[2019-01-14 19:29] LABS: Glucose,Whole Blood 128 mg/dL (75-99)
[2019-01-15] MEDS: HEPARIN SODIUM,PORCINE 5,000 UNIT/ML 1 ML VIAL SQ SCH ×3 (00:33→16:14)
[2019-01-15] MEDS: LACTATED RINGERS 1,000 ML IV SCH ×3 (00:36→15:11)
[2019-01-15] MEDS: METOCLOPRAMIDE 5 MG/ML 2 ML VIAL IVP SCH ×4 (04:30→21:54)
[2019-01-15] MEDS: HYDROmorphone 1 MG/ML 1 ML SYRINGE IVP PRN ×6 (04:32→22:25)
[2019-01-15] MEDS: INSULIN ASPART (NovoLOG) 100 UNIT/ML VIAL SQ SCH ×4 (06:56→21:47)
[2019-01-15 07:20] LABS: Glucose,Whole Blood 128 mg/dL (75-99)
[2019-01-15 07:48] LABS: Basophils % (A) 0 %; Eosinophils # (A) 0.1 k/uL (0-0.7); Eosinophils % (A) 1 %; HCT 36.4 % (39.0-53.0); HGB 12.4 gm/dL (13.0-17.5); Lymphocytes # (A) 0.8 k/uL (1.0-4.8); Lymphocytes % (A) 11 %; MCH 31.3 pg (25.0-35.0); MCHC 34.1 g/dL (31.0-37.0); MCV 91.8 fL (80.0-100.0); Mean Platelet Volume 10.2; Monocytes # (A) 0.6 k/uL (0-1.0); Monocytes % (A) 8 %; Neutrophils # (A) 5.8 k/uL (1.3-7.7); Neutrophils % (A) 79 %; Platelet Count 158 k/uL (150-450); RBC 3.96 m/uL (4.30-5.90); RDW 14.1 % (11.5-15.5); WBC 7.3 k/uL (3.8-10.6)
[2019-01-15 07:57] LABS: African American GFR (CKD) >90 (>60 ml/min/1.73 sqM); Anion Gap 7 mmol/L; Blood Urea Nitrogen 9 mg/dL (9-20); Calcium 8.7 mg/dL (8.4-10.2); Carbon Dioxide 31 mmol/L (22-30); Chloride 101 mmol/L (98-107); Glucose 119 mg/dL (74-99); Non-African American GFR(CKD) >90 (>60 ml/min/1.73 sqM); Sodium 139 mmol/L (137-145)
[2019-01-15] MEDS: PANTOPRAZOLE 40 MG/10 ML VIAL IV SCH (08:47)
[2019-01-15 11:36] LABS: Glucose,Whole Blood 146 mg/dL (75-99)
--- NOTE | 2019-01-15 12:10 | P.PN ---
Subjective Progress Note Date: 01/15/19 Patient states he has no pain today,denies NV no BM or flatus Objective - Vital Signs Vital signs: Vital Signs Temp 98.3 F 01/15/19 04:53 Pulse 80 01/15/19 04:53 Resp 18 01/15/19 04:53 BP 113/65 01/15/19 04:53 Pulse Ox 90 L 01/15/19 04:53 Intake & Output 01/14/19 01/15/19 01/15/19 18:59 06:59 18:59 Intake Total 2000 900 Output Total 530 1900 Balance 1470 -1000 Weight 136.985 kg Intake: IV 1600 Intake, IV Titration 400 900 Amount Lactated Ringers 1,000 ml 400 900 @ 100 mls/hr IV .Q10H [facility] Rx#:[id number] Output: Drainage 130 50 Lower Abdomen 130 50 Urine 300 1850 Uretheral (Weinstein) 350 Estimated Blood Loss 100 Other: Voiding Method Indwelling Catheter Indwelling Catheter Indwelling Catheter - Constitutional General appearance: Present: cooperative - Respiratory Details: Nonlabored - Gastrointestinal Gastrointestinal Comment(s): S/ND/NT KIKI serosang - Psychiatric Psychiatric: Present: A&O x's 3 - Labs CBC & Chem 7: 01/15/19 06:24 01/15/19 06:24 Labs: Abnormal Lab Results - Last 24 Hours (Table) 01/14/19 01/14/19 01/14/19 Range/Units 12:21 17:27 19:28 WBC 11.5 H (3.8-10.6) k/uL RBC (4.30-5.90) m/uL Hgb (13.0-17.5) gm/dL Hct (39.0-53.0) % Lymphocytes # (1.0-4.8) k/uL Carbon Dioxide (22-30) mmol/L Glucose (74-99) mg/dL POC Glucose (mg/dL) 113 H 128 H (75-99) mg/dL 01/15/19 01/15/19 01/15/19 Range/Units 06:24 06:24 07:20 WBC (3.8-10.6) k/uL RBC 3.96 L (4.30-5.90) m/uL Hgb 12.4 L (13.0-17.5) gm/dL Hct 36.4 L (39.0-53.0) % Lymphocytes # 0.8 L (1.0-4.8) k/uL Carbon Dioxide 31 H (22-30) mmol/L Glucose 119 H (74-99) mg/dL POC Glucose (mg/dL) 128 H (75-99) mg/dL 01/15/19 Range/Units 11:35 WBC (3.8-10.6) k/uL RBC (4.30-5.90) m/uL Hgb (13.0-17.5) gm/dL Hct (39.0-53.0) % Lymphocytes # (1.0-4.8) k/uL Carbon Dioxide (22-30) mmol/L Glucose (74-99) mg/dL POC Glucose (mg/dL) 146 H (75-99) mg/dL Assessment and Plan Assessment: POD#1 ex lap small bowel resection with repair of strangulated ventral hernia Plan: NPO until further bowel function returns. Ambulate and IS.
[2019-01-15 17:04] LABS: Glucose,Whole Blood 141 mg/dL (75-99)
[2019-01-15 20:56] LABS: Glucose,Whole Blood 134 mg/dL (75-99)
[2019-01-16] MEDS: HEPARIN SODIUM,PORCINE 5,000 UNIT/ML 1 ML VIAL SQ SCH ×4 (01:31→23:38)
[2019-01-16] MEDS: LACTATED RINGERS 1,000 ML IV SCH ×4 (01:32→16:03)
[2019-01-16] MEDS: HYDROmorphone 1 MG/ML 1 ML SYRINGE IVP PRN ×6 (03:03→22:39)
[2019-01-16] MEDS: METOCLOPRAMIDE 5 MG/ML 2 ML VIAL IVP SCH ×4 (04:26→22:39)
[2019-01-16 07:09] LABS: Glucose,Whole Blood 129 mg/dL (75-99)
[2019-01-16] MEDS: INSULIN ASPART (NovoLOG) 100 UNIT/ML VIAL SQ SCH ×4 (07:20→20:26)
[2019-01-16] MEDS: PANTOPRAZOLE 40 MG/10 ML VIAL IV SCH (07:44)
[2019-01-16 08:20] LABS: Basophils % (A) 0 %; Eosinophils # (A) 0.1 k/uL (0-0.7); Eosinophils % (A) 1 %; HCT 40.8 % (39.0-53.0); HGB 13.4 gm/dL (13.0-17.5); Lymphocytes % (A) 10 %; MCH 30.2 pg (25.0-35.0); MCHC 32.9 g/dL (31.0-37.0); MCV 91.8 fL (80.0-100.0); Mean Platelet Volume 8.7; Monocytes # (A) 0.6 k/uL (0-1.0); Monocytes % (A) 6 %; Neutrophils # (A) 7.6 k/uL (1.3-7.7); Neutrophils % (A) 80 %; Platelet Count 192 k/uL (150-450); RBC 4.44 m/uL (4.30-5.90); RDW 13.9 % (11.5-15.5); WBC 9.5 k/uL (3.8-10.6)
[2019-01-16 08:27] LABS: African American GFR (CKD) >90 (>60 ml/min/1.73 sqM); Anion Gap 7 mmol/L; Blood Urea Nitrogen 10 mg/dL (9-20); Calcium 8.9 mg/dL (8.4-10.2); Carbon Dioxide 33 mmol/L (22-30); Chloride 99 mmol/L (98-107); Glucose 121 mg/dL (74-99); Non-African American GFR(CKD) >90 (>60 ml/min/1.73 sqM); Potassium 4.2 mmol/L (3.5-5.1); Sodium 139 mmol/L (137-145)
--- NOTE | 2019-01-16 10:53 | P.PN ---
Subjective Progress Note Date: 01/16/19 Patient states he has no pain today,passing flatus, no BM Objective - Vital Signs Vital signs: Vital Signs Temp 98.3 F 01/16/19 05:48 Pulse 68 01/16/19 05:48 Resp 18 01/16/19 05:48 BP 136/75 01/16/19 05:48 Pulse Ox 96 01/16/19 05:48 Intake & Output 01/15/19 01/16/19 01/16/19 18:59 06:59 18:59 Intake Total 800 Output Total 660 5 40 Balance 140 -5 -40 Intake: Intake, IV Titration 800 Amount Lactated Ringers 1,000 ml 800 @ 100 mls/hr IV .Q10H [facility] Rx#:[id number] Output: Drainage 60 5 40 Lower Abdomen 60 5 40 Urine 600 Uretheral (Weinstein) 600 Other: Voiding Method Urinal Toilet Toilet Urinal # Voids 2 - Constitutional General appearance: Present: cooperative - Respiratory Details: nonlabored - Cardiovascular Rhythm: regular - Gastrointestinal Gastrointestinal Comment(s): S/NT/ND Incision CDI KIKI serosang - Psychiatric Psychiatric: Present: A&O x's 3 - Labs CBC & Chem 7: 01/16/19 07:14 01/16/19 07:14 Labs: Abnormal Lab Results - Last 24 Hours (Table) 01/15/19 01/15/19 01/15/19 Range/Units 11:35 17:02 20:45 Carbon Dioxide (22-30) mmol/L Creatinine (0.66-1.25) mg/dL Glucose (74-99) mg/dL POC Glucose (mg/dL) 146 H 141 H 134 H (75-99) mg/dL 01/16/19 01/16/19 Range/Units 07:07 07:14 Carbon Dioxide 33 H (22-30) mmol/L Creatinine 0.57 L (0.66-1.25) mg/dL Glucose 121 H (74-99) mg/dL POC Glucose (mg/dL) 129 H (75-99) mg/dL Microbiology - Last 24 Hours (Table) 01/14/19 15:05 Blood Culture - Preliminary Blood No Growth after 24 hours Assessment and Plan Assessment: POD#2 ex lap small bowel resection with repair of strangulated ventral hernia Plan: Clears today, advance as tolerated when patient has more bowel function. Ambulate and IS.
[2019-01-16 11:14] LABS: Hemoglobin A1C 5.7 % (4.0-6.0)
[2019-01-16 11:22] LABS: Glucose,Whole Blood 116 mg/dL (75-99)
[2019-01-16 17:08] LABS: Glucose,Whole Blood 121 mg/dL (75-99)
--- NOTE | 2019-01-16 18:39 | P.PN ---
Subjective Patient was seen and examined and chart reviewed. Patient is recovering successfully after hernia repair. His recovery largely uneventful. No new complaints today. Objective - Vital Signs Vital signs: Vital Signs Temp 98.7 F 01/16/19 11:53 Pulse 65 01/16/19 11:53 Resp 17 01/16/19 11:53 BP 157/76 01/16/19 11:53 Pulse Ox 98 01/16/19 11:53 Intake & Output 01/15/19 01/16/19 01/16/19 18:59 06:59 18:59 Intake Total 800 800 Output Total 660 5 70 Balance 140 -5 730 Intake: Intake, IV Titration 800 800 Amount Lactated Ringers 1,000 ml 800 800 @ 100 mls/hr IV .Q10H [facility] Rx#:[id number] Output: Drainage 60 5 70 Lower Abdomen 60 5 70 Urine 600 Uretheral (Weinstein) 600 Other: Voiding Method Urinal Toilet Toilet Urinal # Voids 2 - Constitutional General appearance: Present: cooperative, no acute distress - Respiratory Respiratory: bilateral: CTA - Cardiovascular Rhythm: regular Heart sounds: normal: S1, S2 - Gastrointestinal General gastrointestinal: Present: normal bowel sounds, soft (No peripheral edema). Absent: tenderness - Labs CBC & Chem 7: 01/16/19 07:14 01/16/19 07:14 Labs: Abnormal Lab Results - Last 24 Hours (Table) 01/15/19 01/16/19 01/16/19 Range/Units 20:45 07:07 07:14 Carbon Dioxide 33 H (22-30) mmol/L Creatinine 0.57 L (0.66-1.25) mg/dL Glucose 121 H (74-99) mg/dL POC Glucose (mg/dL) 134 H 129 H (75-99) mg/dL 01/16/19 01/16/19 Range/Units 11:20 17:06 Carbon Dioxide (22-30) mmol/L Creatinine (0.66-1.25) mg/dL Glucose (74-99) mg/dL POC Glucose (mg/dL) 116 H 121 H (75-99) mg/dL Microbiology - Last 24 Hours (Table) 01/14/19 15:05 Blood Culture - Preliminary Blood No Growth after 48 hours Assessment and Plan Assessment: 1. Hernia repair Continues per surgery recommendations 2. Hypertension Blood pressure stable 2. Type 2 diabetes mellitus without long-term use of insulin Continue sliding scale blood glucose has been in acceptable range
[2019-01-16 20:10] LABS: Glucose,Whole Blood 106 mg/dL (75-99)
[2019-01-17] MEDS: HYDROmorphone 1 MG/ML 1 ML SYRINGE IVP PRN ×6 (02:36→22:44)
[2019-01-17] MEDS: METOCLOPRAMIDE 5 MG/ML 2 ML VIAL IVP SCH ×4 (03:32→22:44)
[2019-01-17 07:26] LABS: Glucose,Whole Blood 99 mg/dL (75-99)
[2019-01-17] MEDS: HEPARIN SODIUM,PORCINE 5,000 UNIT/ML 1 ML VIAL SQ SCH ×3 (07:52→23:35)
[2019-01-17] MEDS: PANTOPRAZOLE 40 MG/10 ML VIAL IV SCH (07:52)
[2019-01-17] MEDS: INSULIN ASPART (NovoLOG) 100 UNIT/ML VIAL SQ SCH ×4 (07:53→20:31)
[2019-01-17] MEDS: LACTATED RINGERS 1,000 ML IV SCH ×2 (07:53→22:11)
[2019-01-17 08:36] LABS: Basophils % (A) 0 %; Eosinophils # (A) 0.4 k/uL (0-0.7); Eosinophils % (A) 5 %; HCT 38.1 % (39.0-53.0); Lymphocytes # (A) 1.4 k/uL (1.0-4.8); Lymphocytes % (A) 17 %; MCH 31.1 pg (25.0-35.0); MCHC 34.3 g/dL (31.0-37.0); MCV 90.7 fL (80.0-100.0); Mean Platelet Volume 10.1; Monocytes # (A) 0.6 k/uL (0-1.0); Monocytes % (A) 8 %; Neutrophils # (A) 5.5 k/uL (1.3-7.7); Neutrophils % (A) 68 %; Platelet Count 155 k/uL (150-450); RDW 13.8 % (11.5-15.5)
[2019-01-17 08:37] LABS: African American GFR (CKD) >90 (>60 ml/min/1.73 sqM); Anion Gap 10 mmol/L; Blood Urea Nitrogen 8 mg/dL (9-20); Calcium 8.5 mg/dL (8.4-10.2); Carbon Dioxide 27 mmol/L (22-30); Chloride 100 mmol/L (98-107); Glucose 97 mg/dL (74-99); Magnesium 1.8 mg/dL (1.6-2.3); Non-African American GFR(CKD) >90 (>60 ml/min/1.73 sqM); Potassium 3.7 mmol/L (3.5-5.1); Sodium 137 mmol/L (137-145)
[2019-01-17 11:22] LABS: Glucose,Whole Blood 89 mg/dL (75-99)
--- NOTE | 2019-01-17 16:40 | P.PN ---
Subjective Progress Note Date: 01/17/19 Patient states he has no pain today,passing flatus, with BM today Objective - Vital Signs Vital signs: Vital Signs Temp 98.6 F 01/17/19 12:12 Pulse 56 L 01/17/19 12:12 Resp 18 01/17/19 12:12 BP 128/71 01/17/19 12:12 Pulse Ox 97 01/17/19 12:12 Intake & Output 01/16/19 01/17/19 01/17/19 18:59 06:59 18:59 Intake Total 800 800 Output Total 70 1500 100 Balance 730 -1500 700 Intake: Intake, IV Titration 800 800 Amount Lactated Ringers 1,000 ml 800 800 @ 100 mls/hr IV .Q10H [facility] Rx#:[id number] Output: Drainage 70 100 Lower Abdomen 70 100 Urine 1500 Other: Voiding Method Toilet Toilet Urinal Urinal # Voids 2 - Constitutional General appearance: Present: cooperative - Respiratory Details: nonlabored - Cardiovascular Rhythm: regular - Gastrointestinal Gastrointestinal Comment(s): S/NT/ND Incision CDI KIKI serosang - Labs CBC & Chem 7: 01/17/19 07:55 01/17/19 07:55 Labs: Abnormal Lab Results - Last 24 Hours (Table) 01/16/19 01/16/19 01/17/19 Range/Units 17:06 20:08 07:55 RBC 4.20 L (4.30-5.90) m/uL Hct 38.1 L (39.0-53.0) % BUN (9-20) mg/dL Creatinine (0.66-1.25) mg/dL POC Glucose (mg/dL) 121 H 106 H (75-99) mg/dL 01/17/19 Range/Units 07:55 RBC (4.30-5.90) m/uL Hct (39.0-53.0) % BUN 8 L (9-20) mg/dL Creatinine 0.54 L (0.66-1.25) mg/dL POC Glucose (mg/dL) (75-99) mg/dL Microbiology - Last 24 Hours (Table) 01/14/19 15:05 Blood Culture - Preliminary Blood No Growth after 48 hours Assessment and Plan Assessment: POD#3 ex lap small bowel resection with repair of strangulated ventral hernia Plan: Advnace diet as tolerated, patient stable for DC from surgical standpoint once tolerating diet. KIKI was Dced today. He can follow up in my clinic in 1 to 2 weeks. Ambulate and IS.
[2019-01-17 17:31] LABS: Glucose,Whole Blood 87 mg/dL (75-99)
[2019-01-17 20:13] LABS: Glucose,Whole Blood 121 mg/dL (75-99)
--- NOTE | 2019-01-17 23:31 | PN ---
PROGRESS NOTE DATE OF SERVICE: 01/17/2019. PRESENTING COMPLAINT: Abdominal pain. INTERVAL HISTORY: This is a patient who presented with abdominal pain. Found to have a strangulated ventral hernia, underwent exploratory laparotomy with small-bowel resection and repair of the strangulated ventral hernia. Today, patient is sitting up in a bed. Some abdominal pain. Has been on a liquid diet. No fever. No chills. Passed a little flatus. REVIEW OF SYSTEMS: Done for constitutional, cardiovascular, GI, pulmonary and relevant findings as above. CURRENT MEDICATIONS: Reviewed that include: Lactated Ringer's. PHYSICAL EXAMINATION: VITAL SIGNS: Temperature 98.6. Pulse 56, respiration 18, blood pressure 128/71, pulse ox 97% on room air. GENERAL APPEARANCE: Well built, BMI 42.1. Sitting up, awake., EYES: Pupils equal. Conjunctivae normal. NECK: JVD unable to assess. Mass not palpable. RESPIRATORY: Effort increased. LUNGS: Diminished breath sounds. CARDIOVASCULAR: 1st and second sounds normal. No edema. ABDOMEN: Soft. Slight tenderness. Bowel sounds sluggish. Liver and spleen not palpable. PSYCHIATRY: Alert and oriented x3. Mood and affect normal. INVESTIGATIONS: White count 18, hemoglobin 13, potassium 3.7, creatinine 0.54. ASSESSMENT: 1. Strangulated ventral hernia leading to small bowel resection and repair of strangulated ventral hernia. 2. Morbid obesity BMI 42.1. 3. Hypothyroid. 4. Essential hypertension. PLAN: Patient overall feeling better. Has been up in the hallway a couple of times. KIKI drain was discontinued earlier today by Dr. Dai and diet has been advanced by him. Care was discussed with the patient. Thank you Dr. Dai. MMODL / IJN: [id number] /
[2019-01-18] MEDS: HYDROmorphone 1 MG/ML 1 ML SYRINGE IVP PRN ×6 (02:09→21:44)
[2019-01-18] MEDS: METOCLOPRAMIDE 5 MG/ML 2 ML VIAL IVP SCH ×4 (06:24→21:43)
[2019-01-18] MEDS: LACTATED RINGERS 1,000 ML IV SCH ×3 (06:24→18:38)
[2019-01-18 07:18] LABS: Glucose,Whole Blood 96 mg/dL (75-99)
[2019-01-18] MEDS: INSULIN ASPART (NovoLOG) 100 UNIT/ML VIAL SQ SCH ×4 (07:29→20:53)
[2019-01-18] MEDS: HEPARIN SODIUM,PORCINE 5,000 UNIT/ML 1 ML VIAL SQ SCH ×3 (07:56→15:06)
[2019-01-18] MEDS: PANTOPRAZOLE 40 MG/10 ML VIAL IV SCH (07:56)
[2019-01-18 08:13] LABS: HCT 34.8 % (39.0-53.0); HGB 11.7 gm/dL (13.0-17.5); MCH 30.8 pg (25.0-35.0); MCHC 33.6 g/dL (31.0-37.0); MCV 91.6 fL (80.0-100.0); Platelet Count 186 k/uL (150-450); RBC 3.79 m/uL (4.30-5.90); RDW 13.8 % (11.5-15.5); WBC 6.1 k/uL (3.8-10.6)
[2019-01-18 08:27] LABS: African American GFR (CKD) >90 (>60 ml/min/1.73 sqM); Anion Gap 8 mmol/L; Blood Urea Nitrogen 6 mg/dL (9-20); Calcium 8.6 mg/dL (8.4-10.2); Carbon Dioxide 30 mmol/L (22-30); Chloride 100 mmol/L (98-107); Glucose 96 mg/dL (74-99); Non-African American GFR(CKD) >90 (>60 ml/min/1.73 sqM); Potassium 3.6 mmol/L (3.5-5.1); Sodium 138 mmol/L (137-145)
--- NOTE | 2019-01-18 08:49 | P.PN ---
Subjective Progress Note Date: 01/18/19 Patient states he has no pain today, tolerating diet. Had some oozing from KIKI site overnight. Objective - Vital Signs Vital signs: Vital Signs Temp 97.9 F 01/18/19 04:55 Pulse 69 01/18/19 04:55 Resp 17 01/18/19 04:55 BP 121/74 01/18/19 04:55 Pulse Ox 96 01/18/19 04:55 Intake & Output 01/17/19 01/18/19 01/18/19 18:59 06:59 18:59 Intake Total 800 2080 Output Total 100 Balance 700 2080 Intake: Intake, IV Titration 800 900 Amount Lactated Ringers 1,000 ml 800 900 @ 100 mls/hr IV .Q10H [facility] Rx#:[id number] Oral 1180 Output: Drainage 100 Lower Abdomen 100 Other: Voiding Method Toilet # Voids 1 - Constitutional General appearance: Present: cooperative - Respiratory Details: nonlabored - Cardiovascular Rhythm: regular - Gastrointestinal Gastrointestinal Comment(s): S/NT/ND - Psychiatric Psychiatric: Present: A&O x's 3 - Labs CBC & Chem 7: 01/18/19 07:16 01/18/19 07:16 Labs: Abnormal Lab Results - Last 24 Hours (Table) 01/17/19 01/18/19 01/18/19 Range/Units 20:12 07:16 07:16 RBC 3.79 L (4.30-5.90) m/uL Hgb 11.7 L (13.0-17.5) gm/dL Hct 34.8 L (39.0-53.0) % BUN 6 L (9-20) mg/dL Creatinine 0.54 L (0.66-1.25) mg/dL POC Glucose (mg/dL) 121 H (75-99) mg/dL Microbiology - Last 24 Hours (Table) 01/14/19 15:05 Blood Culture - Preliminary Blood No Growth after 72 hours Assessment and Plan Assessment: POD#4 ex lap small bowel resection with repair of strangulated ventral hernia Plan: Soft diet as tolerated, pressure dressing to KIKI site, patient did take 2 extra strength aspirin 4 days ago before he came to ER.
[2019-01-18 11:27] LABS: Glucose,Whole Blood 101 mg/dL (75-99)
[2019-01-18 17:05] LABS: Glucose,Whole Blood 121 mg/dL (75-99)
[2019-01-18 20:11] LABS: Glucose,Whole Blood 129 mg/dL (75-99)
[2019-01-18 22:08] LABS: HCT 34.3 % (39.0-53.0); HGB 11.4 gm/dL (13.0-17.5); MCH 30.2 pg (25.0-35.0); MCHC 33.3 g/dL (31.0-37.0); MCV 90.8 fL (80.0-100.0); Mean Platelet Volume 9.8; Platelet Count 185 k/uL (150-450); RBC 3.78 m/uL (4.30-5.90); RDW 13.7 % (11.5-15.5); WBC 5.4 k/uL (3.8-10.6)
--- NOTE | 2019-01-18 23:41 | P.PN ---
Progress Note - Text Progress Note Date: 01/18/19 Interval history: -Patient better with abdominal pain. Found to have a strangulated ventral her susan. Status post exploratory laboratory with small bowel resection and repair of the strangulated ventral hernia. Today-patient having some oozing from the dressing site. That has been advanced. Did Bessler prophylaxis. Does feel a bit tired. Review of systems: Was done for constitutional, cardiovascular, GI, pulmonary. relevant finding as above Active Medications Heparin Sodium (Porcine) (Heparin) 5,000 unit SQ Q8HR [facility] Last Admin: 01/18/19 15:06 Dose: Not Given Documented by: Hydromorphone HCl (Dilaudid) 1 mg IVP Q3HR PRN PRN Reason: Moderate to Severe Pain Last Admin: 01/18/19 21:44 Dose: 1 mg Documented by: Lactated Ringer's (Lactated Ringers) 1,000 mls @ 100 mls/hr IV .Q10H [facility] [place] Last Admin: 01/18/19 18:38 Dose: 100 mls/hr Documented by: Insulin Aspart (Novolog) 0 unit SQ ACHS [facility] [place]; Protocol Last Admin: 01/18/19 20:53 Dose: Not Given Documented by: Lidocaine HCl (.Xylocaine 1% Inj (10mg/Ml) For Iv Start) 0.1 ml INTRADERMA PER PROTOCOL PRN PRN Reason: IV Start Metoclopramide HCl (Reglan) 10 mg IVP Q6H [facility] [place] Last Admin: 01/18/19 21:43 Dose: 10 mg Documented by: Naloxone HCl (Narcan) 0.2 mg IV Q2M PRN PRN Reason: Opioid Reversal Ondansetron HCl (Zofran) 4 mg IVP Q8HR PRN PRN Reason: Nausea And Vomiting Pantoprazole Sodium (Protonix) 40 mg IV DAILY [facility] [place] Last Admin: 01/18/19 07:56 Dose: 40 mg Documented by: Physical examination: VITAL SIGNS: 97.9, 69, 17, 121/74, 96% room air GENERAL: Sitting upon a chair, awake. EYES: Pupils equal. Conjunctiva normal. HEENT: External appearance of nose and ears normal, oral cavity grossly normal. NECK: JVD not raised; masses not palpable. HEART: First and second heart sounds are normal; no edema. LUNGS: Respiratory rate normal; decreased breath sounds. ABDOMEN: Soft, mild tenderness, some oozing around the dressing site, no guarding or rigidity, liver spleen not palpable, no masses palpable. PSYCH: Alert and oriented x3; mood and affect normal. INVESTIGATIONS, reviewed in the clinical context: White count 5.4 hemoglobin 11.4 Assessment: -Strangulated ventral hernia leading to small bowel resection and repair of strength admitted for trial hernia -Morbid obesity BMI 42.1 -Hypothyroid -Essential hypertension Plan: Patient was seen by surgery. Normal pressure dressing around the abdominal site. Patient encouraged to have good. He has been up in the hallway.
[2019-01-19] MEDS: HEPARIN SODIUM,PORCINE 5,000 UNIT/ML 1 ML VIAL SQ SCH ×2 (00:31→08:09)
[2019-01-19] MEDS: HYDROmorphone 1 MG/ML 1 ML SYRINGE IVP PRN ×4 (02:44→14:15)
[2019-01-19 04:57] VITALS: BP 126/78; PULSE 58; RESP 16; TEMP 98.8
[2019-01-19] MEDS: METOCLOPRAMIDE 5 MG/ML 2 ML VIAL IVP SCH ×2 (05:44→11:23)
[2019-01-19 07:23] LABS: Glucose,Whole Blood 110 mg/dL (75-99)
[2019-01-19] MEDS: PANTOPRAZOLE 40 MG/10 ML VIAL IV SCH (08:09)
[2019-01-19] MEDS: INSULIN ASPART (NovoLOG) 100 UNIT/ML VIAL SQ SCH ×2 (08:09→14:03)
[2019-01-19 10:23] LABS: African American GFR (CKD) >90 (>60 ml/min/1.73 sqM); Anion Gap 7 mmol/L; Blood Urea Nitrogen 5 mg/dL (9-20); Calcium 8.7 mg/dL (8.4-10.2); Carbon Dioxide 28 mmol/L (22-30); Chloride 102 mmol/L (98-107); Glucose 113 mg/dL (74-99); Non-African American GFR(CKD) >90 (>60 ml/min/1.73 sqM); Potassium 4.2 mmol/L (3.5-5.1); Sodium 137 mmol/L (137-145)
[2019-01-19 11:01] LABS: HCT 35.1 % (39.0-53.0); MCH 30.6 pg (25.0-35.0); Mean Platelet Volume 12.6; Platelet Count 169 k/uL (150-450); RDW 13.9 % (11.5-15.5); WBC 5.6 k/uL (3.8-10.6)
[2019-01-19 11:36] LABS: Glucose,Whole Blood 118 mg/dL (75-99)
--- NOTE | 2019-01-19 12:17 | P.DS ---
Providers Date of admission: 01/14/19 05:19 Expected date of discharge: 01/19/19 Attending physician: Taqueria Ferrari Consults: 01/14/19 05:17 Consult Physician Stat Consulting Provider: Roe Dai Consult Reason/Comments: umbilical hernia Do you want consulting provider notified?: Already Contacted Primary care physician: [facility] Course: Hospital course: Presented with abdominal pain. Found to have a strangulated ventral hernia. Status post exploratory laboratory with small bowel resection(about 4 inches] and repair of the strangulated ventral hernia. Patient has been doing well. Tolerating his diet. Has been up and about. Discussed with Dr. dai today. Okay to DC. KIKI drain was removed yesterday. Discussed with patient. Discussion and discharge planning more than 35 minutes. Questioned Documents Examiner: Dr. dai from general surgery Physical examination: VITAL SIGNS: 98.3, 80, 18, 11 3/65, 90% on room air GENERAL: Sitting upon a chair, comfortable EYES: Pupils equal. Conjunctiva normal. HEENT: External appearance of nose and ears normal, oral cavity grossly normal. NECK: JVD not raised; masses not palpable. HEART: First and second heart sounds are normal; no edema. LUNGS: Respiratory rate normal; decreased breath sounds. ABDOMEN: Soft, dry dressing, minimal tenderness, liver spleen not palpable, e. PSYCH: Alert and oriented x3; mood and affect normal. INVESTIGATIONS, reviewed in the clinical context: White count 5.6 hemoglobin 12 creatinine 0.43 Previous testing Preop hemoglobin-14.3 Assessment: -Strangulated ventral hernia leading to small bowel resection [about 4 inches] and repair of strangulated ventral hernia -Morbid obesity BMI 42.1 -Hypothyroid -Essential hypertension -Acutepost-procedure blood loss anemia as expected from surgery Disposition: -[facility] Patient Condition at Discharge: Stable Plan - Discharge Summary New Discharge Prescriptions: New Acetaminophen Tab [Tylenol Tab] 650 mg PO Q6H PRN #1 tablet PRN Reason: Pain Ondansetron [Zofran] 4 mg PO Q8HR PRN #1 tab PRN Reason: Nausea Continue Lisinopril-Hctz 10-12.5 mg [Zestoretic 10-12.5] 1 tab PO DAILY Levothyroxine Sodium [Synthroid] 100 mcg PO DAILY Discontinued Loratadine [Claritin] 10 mg PO DAILY Discharge Medication List Levothyroxine Sodium [Synthroid] 100 mcg PO DAILY 11/15/18 [History] Lisinopril-Hctz 10-12.5 mg [Zestoretic 10-12.5] 1 tab PO DAILY 11/15/18 [History] Acetaminophen Tab [Tylenol Tab] 650 mg PO Q6H PRN #1 tablet 01/19/19 [Rx] Ondansetron [Zofran] 4 mg PO Q8HR PRN #1 tab 01/19/19 [Rx] Follow up Appointment(s)/Referral(s): Roe Dai DO [Doctor of Osteopathic Medicine] - 2 Weeks Tommy Osborne DO [Primary Care Provider] - 1-2 days Activity/Diet/Wound Care/Special Instructions: Dressing changes as per surgery.
[2019-01-19] MEDS: LACTATED RINGERS 1,000 ML IV SCH (14:02)
== END 2019-01-19 14:45 | DRG 330 ==
LOC: EC 02:28 → 3NMEDONC 05:19
PROVIDERS: ADMIT Hospitalist; ATTEND Hospitalist
PROC: 0WQF0ZZ Repair Abdominal Wall, Open Approach (ICD-10-PCS; principal; 2019-01-14 06:29)
PROC: 0DB80ZZ Excision of Small Intestine, Open Approach (ICD-10-PCS; principal; 2019-01-14 06:29)
PROC: 0DBU0ZZ Excision of Omentum, Open Approach (ICD-10-PCS; principal; 2019-01-14 06:29)
DX: K43.6 Other and unspecified ventral hernia with obstruction, without gangrene (principal); D62 Acute posthemorrhagic anemia; Z68.41 Body mass index [BMI] 40.0-44.9, adult; E03.9 Hypothyroidism, unspecified; E11.9 Type 2 diabetes mellitus without complications; E66.01 Morbid (severe) obesity due to excess calories; I10 Essential (primary) hypertension; Z79.890 Hormone replacement therapy; Z79.899 Other long term (current) drug therapy
CPT/HCPCS: 36415; 80048; 80053; 83036; 83605; 83735; 85025; 85027; 85610; 86850; 86900; 86901; 87040; 88307; 94760; 96361; 96374; 96375; 99285

== ENCOUNTER 2019-02-22 18:32 | Inpatient (IN) | payer OTHER ==
[2019-02-22] MEDS ORDERED: PIPERACILLIN-TAZOBACTAM 3.375 GM in SODIUM CHLORIDE 0.9% 100 ML IVPB STA (19:12)
[2019-02-22] MEDS ORDERED: VANCOMYCIN IV PER PHARMACY 1 EACH MISC MISCELLANE PRN (19:12)
[2019-02-22] MEDS ORDERED: SODIUM CHLORIDE 0.9% 1,000 ML IV ONE (19:13)
--- NOTE | 2019-02-22 19:13 | ED ---
Abdominal Pain HPI - General Chief Complaint: Abdominal Pain Stated Complaint: wound Time Seen by Provider: 02/22/19 18:43 Source: EMS, RN notes reviewed, old records reviewed Mode of arrival: EMS Limitations: no limitations - History of Present Illness Initial Comments: Patient is a 48-year-old male, who presents emergency department today for transfer for [place]. Patient reports these been having infection over his lower abdominal wound. He reports a visiting nurse has been coming to dress his wound and is noticed purulent drainage from the umbilical site. Patient was started on vancomycin the hospital. Patient's surgeon is Dr. cunningham any other surgery for hernia repair on the first week of January. Patient was sent to the medical facility for rehab when he left on February 07. He followed up with his surgeon on February 15 and at that time the wound is closed over the last few days when it reopened. He does complain of some pain around the wound. Denies any fevers. - Related Data Home Medications Medication Instructions Recorded Confirmed Levothyroxine Sodium [Synthroid] 100 mcg PO DAILY 11/15/18 01/14/19 Lisinopril-Hctz 10-12.5 mg 1 tab PO DAILY 11/15/18 01/14/19 [Zestoretic 10-12.5] Previous Rx's Medication Instructions Recorded Acetaminophen Tab [Tylenol Tab] 650 mg PO Q6H PRN #1 tablet 01/19/19 Ondansetron [Zofran] 4 mg PO Q8HR PRN #1 tab 01/19/19 Allergies Allergy/AdvReac Type Severity Reaction Status Date / Time No Known Allergies Allergy Verified 01/14/19 11:41 Review of Systems ROS Statement: Those systems with pertinent positive or pertinent negative responses have been documented in the HPI. ROS Other: All systems not noted in ROS Statement are negative. Past Medical History Past Medical History: Diabetes Mellitus, Hypertension, Thyroid Disorder Additional Past Medical History / Comment(s): hernia History of Any Multi-Drug Resistant Organisms: None Reported Past Surgical History: Bowel Resection, Hernia Repair, Orthopedic Surgery Additional Past Surgical History / Comment(s): lt thumb trigger thumb, right big toe amputation Past Anesthesia/Blood Transfusion Reactions: No Reported Reaction Additional Past Anesthesia/Blood Transfusion Reaction / Comment(s): Uncle on mother's side had a reaction to anesthesia during ortho surgery and prior to surgery, had heart problems Past Psychological History: No Psychological Hx Reported Smoking Status: Never smoker Past Alcohol Use History: None Reported Past Drug Use History: None Reported General Exam - General Exam Comments Initial Comments: 48-year-old male. Alert and oriented. Limitations: no limitations General appearance: alert, in no apparent distress Head exam: Present: atraumatic Eye exam: Present: normal appearance, PERRL, EOMI. Absent: scleral icterus, conjunctival injection, periorbital swelling ENT exam: Present: normal exam, mucous membranes moist Neck exam: Present: normal inspection. Absent: tenderness, meningismus, lymphadenopathy Respiratory exam: Present: normal lung sounds bilaterally. Absent: respiratory distress, wheezes, rales, rhonchi, stridor Cardiovascular Exam: Present: regular rate, normal rhythm, normal heart sounds. Absent: systolic murmur, diastolic murmur, rubs, gallop, clicks GI/Abdominal exam: Present: soft, tenderness (patient has opening over umbilicus area, purulent drainage), normal bowel sounds, other (wound dihiscence over umbilicus measuring 6cm by 6cm). Absent: distended, guarding, rebound, rigid Extremities exam: Present: normal inspection, full ROM, normal capillary refill. Absent: tenderness, pedal edema, joint swelling, calf tenderness Back exam: Present: normal inspection Neurological exam: Present: alert, oriented X3, CN II-XII intact Psychiatric exam: Present: normal affect, normal mood Skin exam: Present: warm, dry, intact, normal color. Absent: rash Course Vital Signs 02/22/19 18:33 Temperature 97.7 F Pulse Rate 79 Respiratory 19 Rate Blood Pressure 133/71 O2 Sat by Pulse 99 Oximetry Medical Decision Making - Medical Decision Making 48-year-old male presented today for wound dehiscence of her umbilicus. He had hernia repair by Dr. cunningham in the beginning of January. Over the past 2 days she's had the wound open her purulent drainage. He does have a visiting nurse. Patient labwork was reviewed, evidence of an unremarkable. He did receive vancomycin at [facility]. At this time Patient did have a wound culture completed. I also initiated a blood culture. Patient case was discussed with Dr. Vanegas,, discussed the case with Dr. Tapia. Patient will be admitted under Dr. cunningham. - Lab Data Result diagrams: 02/22/19 19:33 02/22/19 19:33 Lab Results 02/22/19 02/22/19 02/22/19 Range/Units 19:33 19:33 19:33 WBC 11.0 H (3.8-10.6) k/uL RBC 4.63 (4.30-5.90) m/uL Hgb 13.8 (13.0-17.5) gm/dL Hct 42.0 (39.0-53.0) % MCV 90.8 (80.0-100.0) fL MCH 29.8 (25.0-35.0) pg MCHC 32.8 (31.0-37.0) g/dL RDW 13.2 (11.5-15.5) % Plt Count 213 (150-450) k/uL Neutrophils % 77 % Lymphocytes % 9 % Monocytes % 5 % Eosinophils % 5 % Basophils % 2 % Neutrophils # 8.5 H (1.3-7.7) k/uL Lymphocytes # 1.0 (1.0-4.8) k/uL Monocytes # 0.6 (0-1.0) k/uL Eosinophils # 0.6 (0-0.7) k/uL Basophils # 0.2 (0-0.2) k/uL PT 10.4 (9.0-12.0) sec INR 1.0 (<1.2) APTT 21.7 L (22.0-30.0) sec Sodium 142 (137-145) mmol/L Potassium 3.9 (3.5-5.1) mmol/L Chloride 100 (98-107) mmol/L Carbon Dioxide 30 (22-30) mmol/L Anion Gap 12 mmol/L BUN 10 (9-20) mg/dL Creatinine 0.56 L (0.66-1.25) mg/dL Est GFR (CKD-EPI)AfAm >90 (>60 ml/min/1.73 sqM) Est GFR (CKD-EPI)NonAf >90 (>60 ml/min/1.73 sqM) Glucose 115 H (74-99) mg/dL Calcium 9.5 (8.4-10.2) mg/dL Total Bilirubin 0.7 (0.2-1.3) mg/dL AST 24 (17-59) U/L ALT 15 (4-49) U/L Alkaline Phosphatase 73 (38-126) U/L Total Protein 7.7 (6.3-8.2) g/dL Albumin 4.3 (3.5-5.0) g/dL Disposition Clinical Impression: Wound dehiscence, Wound infection Disposition: ADMITTED IP TO THIS HOSP Condition: Stable Is patient prescribed a controlled substance at d/c from ED?: No Referrals: Magdiel Osborne DO [Primary Care Provider] - 1-2 days Time of Disposition: 20:13
[2019-02-22] MEDS ORDERED: VANCOMYCIN 2,000 MG in SODIUM CHLORIDE 0.9% 500 ML 500 ML IVPB STA (19:18)
[2019-02-22 19:41] LABS: Basophils # (A) 0.2 k/uL (0-0.2); Basophils % (A) 2 %; Eosinophils # (A) 0.6 k/uL (0-0.7); Eosinophils % (A) 5 %; HGB 13.8 gm/dL (13.0-17.5); Lymphocytes % (A) 9 %; MCH 29.8 pg (25.0-35.0); MCHC 32.8 g/dL (31.0-37.0); MCV 90.8 fL (80.0-100.0); Mean Platelet Volume 9.3; Monocytes # (A) 0.6 k/uL (0-1.0); Monocytes % (A) 5 %; Neutrophils # (A) 8.5 k/uL (1.3-7.7); Neutrophils % (A) 77 %; Platelet Count 213 k/uL (150-450); RBC 4.63 m/uL (4.30-5.90); RDW 13.2 % (11.5-15.5)
[2019-02-22] MEDS ORDERED: VANCOMYCIN 1,250 MG in SODIUM CHLORIDE 0.9% 250 ML IVPB STA (19:55)
[2019-02-22 19:57] LABS: ALT 15 U/L (4-49); AST 24 U/L (17-59); African American GFR (CKD) >90 (>60 ml/min/1.73 sqM); Albumin 4.3 g/dL (3.5-5.0); Alkaline Phosphatase 73 U/L (38-126); Anion Gap 12 mmol/L; Blood Urea Nitrogen 10 mg/dL (9-20); Calcium 9.5 mg/dL (8.4-10.2); Carbon Dioxide 30 mmol/L (22-30); Chloride 100 mmol/L (98-107); Glucose 115 mg/dL (74-99); Non-African American GFR(CKD) >90 (>60 ml/min/1.73 sqM); Potassium 3.9 mmol/L (3.5-5.1); Sodium 142 mmol/L (137-145); Total Bilirubin 0.7 mg/dL (0.2-1.3); Total Protein 7.7 g/dL (6.3-8.2)
[2019-02-22 20:01] LABS: Prothrombin Time 10.4 sec (9.0-12.0)
[2019-02-22 20:09] LABS: Partial Thromboplastin Time 21.7 sec (22.0-30.0)
[2019-02-22] MEDS ORDERED: IBUPROFEN 400 MG TAB PO PRN (20:16)
[2019-02-22] MEDS ORDERED: ONDANSETRON 4 MG/2 ML VIAL IVP PRN (20:16)
[2019-02-22] MEDS ORDERED: MORPHINE SULFATE 4 MG/ML SYRINGE IV PRN (20:16)
[2019-02-22] MEDS ORDERED: KETOROLAC 30 MG/ML 1 ML VIAL IVP PRN (20:16)
[2019-02-22] MEDS ORDERED: NALOXONE 0.4 MG/ML 1 ML VIAL IV PRN (20:16)
[2019-02-22] MEDS ORDERED: ACETAMINOPHEN TAB 325 MG TAB PO PRN (20:16)
[2019-02-22] MEDS: SODIUM CHLORIDE 0.9% 1,000 ML IV SCH (20:38)
[2019-02-23] MEDS: PIPERACILLIN-TAZOBACTAM 3.375 GM in SODIUM CHLORIDE 0.9% 100 ML IVPB SCH ×2 (04:28→12:32)
[2019-02-23] MEDS: SODIUM CHLORIDE 0.9% 1,000 ML IV SCH ×2 (06:22→15:23)
[2019-02-23] MEDS ORDERED: VANCOMYCIN 2,250 MG in SODIUM CHLORIDE 0.9% 500 ML 500 ML IVPB SCH (08:00)
[2019-02-23] MEDS ORDERED: PANTOPRAZOLE 40 MG/10 ML VIAL IV SCH (09:00)
[2019-02-23 13:19] VITALS: BMI 40.8
--- NOTE | 2019-02-23 15:54 | P.GSHP ---
History of Present Illness H&P Date: 02/23/19 This 48-year-old male who previously had respiratory laparotomy with small bowel resection and repair of strangulated ventral hernia. Patient had been discharged to rehab and was doing well. I recently saw him in the clinic and took the ade out of his midline wound. He started having increased drainage from his wound which opened in the middle at home. He denies any fevers or chills. His visiting nurse sent him to the emergency department. He's having normal bowel movements he denies any nausea or vomiting. Past Medical History Past Medical History: Diabetes Mellitus, Hypertension, Thyroid Disorder Additional Past Medical History / Comment(s): hernia History of Any Multi-Drug Resistant Organisms: None Reported Past Surgical History: Bowel Resection, Hernia Repair, Orthopedic Surgery Additional Past Surgical History / Comment(s): lt thumb trigger thumb, right big toe amputation Past Anesthesia/Blood Transfusion Reactions: No Reported Reaction Additional Past Anesthesia/Blood Transfusion Reaction / Comment(s): Uncle on mother's side had a reaction to anesthesia during ortho surgery and prior to surgery, had heart problems Past Psychological History: No Psychological Hx Reported Smoking Status: Never smoker Past Alcohol Use History: None Reported Past Drug Use History: None Reported Medications and Allergies Home Medications Medication Instructions Recorded Confirmed Type Levothyroxine Sodium [Synthroid] 100 mcg PO DAILY 11/15/18 02/22/19 History Lisinopril-Hctz 10-12.5 mg 1 tab PO DAILY 11/15/18 02/22/19 History [Zestoretic 10-12.5] Acetaminophen Tab [Tylenol Tab] 650 mg PO Q6H PRN #1 tablet 01/19/19 02/22/19 Rx Loratadine [Claritin] 10 mg PO DAILY 02/22/19 02/22/19 History Allergies Allergy/AdvReac Type Severity Reaction Status Date / Time No Known Allergies Allergy Verified 02/22/19 20:11 Surgical - Exam Osteopathic Statement: *. No significant issues noted on an osteopathic structural exam other than those noted in the History and Physical/Consult. Vital Signs Temp Pulse Resp BP Pulse Ox 97.7 F 79 19 133/71 99 02/22/19 18:33 02/22/19 18:33 02/22/19 18:33 02/22/19 18:33 02/22/19 18:33 - General well developed, well nourished - Eyes PERRL - Neck no masses - Respiratory normal expansion, normal respiratory effort - Cardiovascular Rhythm: regular - Abdomen Midline wound with 3 cm x 3 cm opening which is beefy red granulation tissue. No erythema no purulence Abdomen: soft, non tender - Psychiatric oriented to time, oriented to person, oriented to place Results - Labs 02/22/19 19:33 02/22/19 19:33 Abnormal Lab Results - Last 24 Hours (Table) 02/22/19 02/22/19 02/22/19 Range/Units 19:33 19:33 19:33 WBC 11.0 H (3.8-10.6) k/uL Neutrophils # 8.5 H (1.3-7.7) k/uL APTT 21.7 L (22.0-30.0) sec Creatinine 0.56 L (0.66-1.25) mg/dL Glucose 115 H (74-99) mg/dL Microbiology - Last 24 Hours (Table) 02/22/19 19:33 Gram Stain - Preliminary Abdomen Wound Culture - Preliminary Diabetes panel 02/22/19 Range/Units 19:33 Sodium 142 (137-145) mmol/L Potassium 3.9 (3.5-5.1) mmol/L Chloride 100 (98-107) mmol/L Carbon Dioxide 30 (22-30) mmol/L BUN 10 (9-20) mg/dL Creatinine 0.56 L (0.66-1.25) mg/dL Glucose 115 H (74-99) mg/dL Calcium 9.5 (8.4-10.2) mg/dL AST 24 (17-59) U/L ALT 15 (4-49) U/L Alkaline Phosphatase 73 (38-126) U/L Total Protein 7.7 (6.3-8.2) g/dL Albumin 4.3 (3.5-5.0) g/dL Calcium panel 02/22/19 Range/Units 19:33 Calcium 9.5 (8.4-10.2) mg/dL Albumin 4.3 (3.5-5.0) g/dL Pituitary panel 02/22/19 Range/Units 19:33 Sodium 142 (137-145) mmol/L Potassium 3.9 (3.5-5.1) mmol/L Chloride 100 (98-107) mmol/L Carbon Dioxide 30 (22-30) mmol/L BUN 10 (9-20) mg/dL Creatinine 0.56 L (0.66-1.25) mg/dL Glucose 115 H (74-99) mg/dL Calcium 9.5 (8.4-10.2) mg/dL Adrenal panel 02/22/19 Range/Units 19:33 Sodium 142 (137-145) mmol/L Potassium 3.9 (3.5-5.1) mmol/L Chloride 100 (98-107) mmol/L Carbon Dioxide 30 (22-30) mmol/L BUN 10 (9-20) mg/dL Creatinine 0.56 L (0.66-1.25) mg/dL Glucose 115 H (74-99) mg/dL Calcium 9.5 (8.4-10.2) mg/dL Total Bilirubin 0.7 (0.2-1.3) mg/dL AST 24 (17-59) U/L ALT 15 (4-49) U/L Alkaline Phosphatase 73 (38-126) U/L Total Protein 7.7 (6.3-8.2) g/dL Albumin 4.3 (3.5-5.0) g/dL Assessment and Plan Assessment: Wound dehiscence Plan: There is healthy granulation tissue in the wound. There is no erythema or purulent drainage to indicate infection at this time. Wound care will be consulted for evaluation for possible wound VAC therapy.
[2019-02-23 20:46] LABS: Glucose,Whole Blood 105 mg/dL (75-99)
[2019-02-24 07:09] LABS: Glucose,Whole Blood 118 mg/dL (75-99)
[2019-02-24 07:22] LABS: African American GFR (CKD) >90 (>60 ml/min/1.73 sqM); Non-African American GFR(CKD) >90 (>60 ml/min/1.73 sqM)
[2019-02-24] MEDS ORDERED: PANTOPRAZOLE 40 MG TABLET PO SCH (07:30)
[2019-02-24 08:09] VITALS: BP 125/76; PULSE 58; RESP 16; TEMP 98.4
--- NOTE | 2019-02-24 09:35 | P.PN ---
Subjective Progress Note Date: 02/24/19 The patient is in with wound drainage and skin separation. Consult was written for wound care but they have not seen him yet. Patient denies any significant pain Objective - Vital Signs Vital signs: Vital Signs Temp 98.4 F 02/24/19 07:00 Pulse 58 L 02/24/19 07:00 Resp 16 02/24/19 07:00 BP 125/76 02/24/19 07:00 Pulse Ox 98 02/24/19 07:00 Intake & Output 02/23/19 02/24/19 02/24/19 18:59 06:59 18:59 Intake Total 1050 480 Balance 1050 480 Weight 132.903 kg Intake: Oral 1050 480 Other: # Voids 1 2 - Constitutional General appearance: Present: cooperative, no acute distress - Labs CBC & Chem 7: 02/22/19 19:33 02/24/19 06:36 Labs: Abnormal Lab Results - Last 24 Hours (Table) 02/23/19 02/24/19 02/24/19 Range/Units 20:34 06:36 06:57 Creatinine 0.62 L (0.66-1.25) mg/dL POC Glucose (mg/dL) 105 H 118 H (75-99) mg/dL Microbiology - Last 24 Hours (Table) 02/22/19 19:33 Gram Stain - Preliminary Abdomen Wound Culture - Preliminary Strep pyogenes (grp a) Assessment and Plan (1) Wound dehiscence Current Visit: Yes Status: Acute Code(s): T81.30XA - DISRUPTION OF WOUND, UNSPECIFIED, INITIAL ENCOUNTER SNOMED Code(s): 423078076 Plan: Small amount of strep bacteria grew from the culture. Likely denies any patient. Patient is to be evaluated by wound care. Await placement of wound VAC and discharge when that is in place
--- NOTE | 2019-02-24 10:44 | P.CONS ---
History of Present Illness - Reason for Consult Consult date: 02/24/19 Wound care negative pressure wound therapy - History of Present Illness This is a 48-year-old pleasant gentleman who is being seen by the wound care center for a wound dehiscence. The patient underwent a exploratory laparotomy with small bowel resection and repair of strength later ventral hernia. The patient was discharged to a rehab facility and was doing well. The patient had his ade removed to the midline incision the wound began to dehisce having increasing drainage. Patient denies any fever or chills. Ulceration is midline measuring approximately 3 x 3 x 1 cm granulation seen throughout no Slough or nonviable tissue seen. Distal to the ulceration is a smaller ulceration measuring 3 x 0.4 x 0.1 width adherent Slough to the site. Review of Systems Review Of Systems: Constitutional: No fever, no chills, no night sweats. No weight change. No weakness, fatigue or lethargy. No daytime sleepiness. Integumentary:reports wounds, no lesions. No rash or pruritus. No unusual bruising. No change in hair or nails. Past Medical History Past Medical History: Diabetes Mellitus, Hypertension, Thyroid Disorder Additional Past Medical History / Comment(s): hernia History of Any Multi-Drug Resistant Organisms: None Reported Past Surgical History: Bowel Resection, Hernia Repair, Orthopedic Surgery Additional Past Surgical History / Comment(s): lt thumb trigger thumb, right big toe amputation Past Anesthesia/Blood Transfusion Reactions: No Reported Reaction Additional Past Anesthesia/Blood Transfusion Reaction / Comm: Uncle on mother's side had a reaction to anesthesia during ortho surgery and prior to surgery, had heart problems Past Psychological History: No Psychological Hx Reported Smoking Status: Never smoker Past Alcohol Use History: None Reported Past Drug Use History: None Reported Medications and Allergies Home Medications Medication Instructions Recorded Confirmed Type Levothyroxine Sodium [Synthroid] 100 mcg PO DAILY 11/15/18 02/22/19 History Lisinopril-Hctz 10-12.5 mg 1 tab PO DAILY 11/15/18 02/22/19 History [Zestoretic 10-12.5] Acetaminophen Tab [Tylenol Tab] 650 mg PO Q6H PRN #1 tablet 01/19/19 02/22/19 Rx Loratadine [Claritin] 10 mg PO DAILY 02/22/19 02/22/19 History Allergies Allergy/AdvReac Type Severity Reaction Status Date / Time No Known Allergies Allergy Verified 02/22/19 20:11 Physical Exam Vitals: Vital Signs Temp Pulse Resp BP Pulse Ox 02/24/19 07:00 98.4 F 58 L 16 125/76 98 02/24/19 01:53 98.6 F 60 15 122/73 97 02/23/19 19:37 99.3 F 72 15 143/79 96 02/23/19 14:45 98.4 F 66 17 115/72 99 Intake and Output 02/23/19 02/24/19 02/24/19 22:59 06:59 14:59 Intake Total 540 240 Balance 540 240 Intake: Oral 540 240 Other: # Voids 3 2 Physical exam: General Appearance: Alert, cooperative, no distress, appears stated age. Skin: See HPI all other Skin color, texture, tugor normal, no rashes or lesions. Neurologic: Alert oriented x3 Results CBC & Chem 7: 02/22/19 19:33 02/24/19 06:36 Labs: Abnormal Lab Results - Last 24 Hours (Table) 02/23/19 02/24/19 02/24/19 Range/Units 20:34 06:36 06:57 Creatinine 0.62 L (0.66-1.25) mg/dL POC Glucose (mg/dL) 105 H 118 H (75-99) mg/dL Microbiology - Last 24 Hours (Table) 02/22/19 19:33 Gram Stain - Preliminary Abdomen Wound Culture - Preliminary Strep pyogenes (grp a) Assessment and Plan (1) Wound dehiscence Current Visit: Yes Status: Acute Code(s): T81.30XA - DISRUPTION OF WOUND, UNSPECIFIED, INITIAL ENCOUNTER SNOMED Code(s): 417267569 Plan: Apply negative pressure wound VAC to site with black foam and 150 mmHg continuous suction. utilize skin prep to the site. Apply honey alginate to the distal ulceration, apply hydrocolloid dressing to the wound. Change Wednesday. Discussed with patient to follow-up and the outpatient wound care center for continued care. Patient verbalized understanding and agreeable. Thank you for the consultation. Any questions please contact the wound care center DNP note has been reviewed and discussed with Dr. Duran and the impression and plan of care has been directed as dictated.
--- NOTE | 2019-02-24 12:52 | P.DS ---
Providers Date of admission: 02/22/19 19:42 Expected date of discharge: 02/24/19 Attending physician: Roe Dai DO Consults: Wound care Primary care physician: Magdiel Osborne - Discharge Diagnosis(es) (1) Wound dehiscence Current Visit: Yes Status: Acute Hospital Course: The patient presented with wound drainage.. It started shortly after surgery, but was increasing in amount and there was skin separation. No fever or purulent drainage. He was admitted and evaluated. Randolph to be a candidate for wound vac therapy. Culture showed strep, normal skin nakul which was likely colonization. Randolph stable for discharege 1-17 Patient Condition at Discharge: Good Plan - Discharge Summary Discharge Rx Participant: Yes New Discharge Prescriptions: New Ciprofloxacin HCl [Cipro] 500 mg PO Q12HR #14 tablet No Action Lisinopril-Hctz 10-12.5 mg [Zestoretic 10-12.5] 1 tab PO DAILY Levothyroxine Sodium [Synthroid] 100 mcg PO DAILY Acetaminophen Tab [Tylenol Tab] 650 mg PO Q6H PRN #1 tablet PRN Reason: Pain Loratadine [Claritin] 10 mg PO DAILY Discharge Medication List Levothyroxine Sodium [Synthroid] 100 mcg PO DAILY 11/15/18 [History] Lisinopril-Hctz 10-12.5 mg [Zestoretic 10-12.5] 1 tab PO DAILY 11/15/18 [History] Acetaminophen Tab [Tylenol Tab] 650 mg PO Q6H PRN #1 tablet 01/19/19 [Rx] Loratadine [Claritin] 10 mg PO DAILY 02/22/19 [History] Ciprofloxacin HCl [Cipro] 500 mg PO Q12HR #14 tablet 02/24/19 [Rx] Follow up Appointment(s)/Referral(s): Magdiel Osborne DO [Primary Care Provider] - 1-2 days Wound Healing,Center [NON-STAFF] - 03/02/19 2:00 pm (office will ghada at beginning of week to get you preresgistered) [facility], [NON-STAFF] - As Needed Patient Instructions/Handouts: Wound Dehiscence (DC) Activity/Diet/Wound Care/Special Instructions: Negative pressure instructions: Negative pressure foam, 150 mmHg continuous, Changed Wednesday, Wednesday, Wednesday. Distal Abdominal Wound Ulceration: Honey Alginate covered with a hydrocolloid dressing. Discharge Disposition: TRANSFER TO SNF/ECF
[2019-02-25] MEDS ORDERED: VANCOMYCIN TROUGH DUE 1 EACH MISC MISCELLANE ONE (07:00)
== END 2019-02-24 15:19 | DRG 921 ==
LOC: EC 18:32 → 4SSUR 19:42
PROVIDERS: ADMIT Student in an Organized Health Care Education/Training Program; ATTEND Student in an Organized Health Care Education/Training Program
DX: T81.31XA Disruption of external operation (surgical) wound, not elsewhere classified, initial encounter (principal); E11.9 Type 2 diabetes mellitus without complications; I10 Essential (primary) hypertension; Z79.890 Hormone replacement therapy; Z79.899 Other long term (current) drug therapy; Z90.49 Acquired absence of other specified parts of digestive tract; Z89.411 Acquired absence of right great toe; L98.499 Non-pressure chronic ulcer of skin of other sites with unspecified severity
CPT/HCPCS: 36415; 80053; 82565; 85025; 85610; 85730; 87070; 87077; 87186; 87205; 96365; 96367; 99285